=== PATIENT | male | born 1945 | race Caucasian/White ===

== ENCOUNTER 2016-04-16 10:12 | Inpatient (IN) | payer MEDICARE, BC ==
[2016-04-16] VITALS (9 sets, daily range): BP systolic 108–157; BP diastolic 76–96; PULSE 63–102; RESP 16–20; TEMP 98.1–99; O2SAT 93–98
[~2016-04-16] VITALS: Ht 149.9 cm; Wt 79.5 kg
[2016-04-16] MEDS ORDERED: WELC625T2 PO (10:39)
[2016-04-16] MEDS ORDERED: MELO7.5T4 PO (10:39)
[2016-04-16] MEDS ORDERED: ASPI1TAB69 PO (10:39)
[2016-04-16] MEDS ORDERED: NITR400A5 SL (10:39)
[2016-04-16] MEDS ORDERED: FEXO180T PO (10:39)
[2016-04-16] MEDS ORDERED: PANT40TA3 PO (10:39)
[2016-04-16] MEDS ORDERED: GABA300C5 PO ×2 (10:39)
[2016-04-16] MEDS ORDERED: LISI20TA3 PO (10:39)
[2016-04-16] MEDS ORDERED: SITA1TAB2 PO (10:39)
[2016-04-16] MEDS ORDERED: METO100T9 PO (10:39)
--- NOTE | 2016-04-16 10:39 | PD ---
HPI Chief Complaint: Abdominal Pain Time Seen by Provider: 10:17 Travel History International Travel<30 days: No Contact w/Intl Traveler<30days: No Traveled to known affect area: No History of Present Illness HPI This 70-year-old male with history of small bowel obstruction and ingrown hernia repair presents emergency Department with right upper quadrant abdominal pain fairly severe since last night. Patient states had movement yesterday which is fairly soft nonbloody and nonbilious. Patient thought he was constipated and took a stool softener. Patient got in the shower this morning and felt very weak like he was going to pass out, he was moved to the toilet by his who then stated he needed to go to the hospital be checked out and she called 911. Patient states abdominal pain is coming on but as long as he holds still and this does not hurt him. He does endorse some mild nausea without vomiting. States pain is cramping in nature. Denies any fever denies any vomiting denies any chest pain shortness of breath PFSH Past Medical History Arthritis: Yes (OSTEOARTHRITIS) Cardiovascular Problems: Yes High Cholesterol: Yes Coronary Artery Disease: Yes Diabetes: Yes (TYPE 2) Patient Takes Glucophage: No (JANUVIA) GERD: Yes Hypertension: Yes Reproductive: Yes (BPH) Immunizations Current: Yes Myocardial Infarction: Yes Past Surgical History Coronary Artery Bypass Graft: Yes Eye Surgery: Yes (CATARACTS REMOVED) Genitourinary Surgery: Yes (VASECTOMY) Joint Replacement: Yes (LEFT TOTAL HIP ) Oral Surgery: Yes (LARYNGEAL STRIPPING FO VOCAL CORDS) Other Surgery: Yes (LEFT INGUINAL HERNIA REPAIR, MELANOMA REMOVAL NECK) Social History Alcohol Use: Yes (OCC) Tobacco Use: No Substance Use: No Allergies-Medications (Allergen,Severity, Reaction): Coded Allergies: HMG-CoA Reductase Inhibitors (Verified Adverse Reaction, Intermediate, MUSCLE ACHES, 04/16/16) Reported Meds & Prescriptions Reported Meds & Active Scripts Active Reported Welchol (Colesevelam HCl) 625 Mg Tab 1,875 Mg PO BID Pantoprazole (Pantoprazole Sodium) 40 Mg Tab 40 Mg PO DAILY Nitroglycerin Lingual [place] (Nitroglycerin) 400 Mcg/Act [place] 1 [place] SL DIRECTED PRN ONE SPRAY NEEDED FOR CHEST PAIN, MAY REPEAT EVERY FIVE MINUTES FOR A TOTAL OF 3 DOSES OR CALL 911 IF NO RELIEF Metoprolol Succinate ER 24 HR (Metoprolol Succinate) 100 Mg Tab 100 Mg PO DAILY Meloxicam 7.5 Mg Tab 7.5 Mg PO BID Lisinopril-Hctz 20-25 Mg Tab 1 Tab PO DAILY Januvia (Sitagliptin Phosphate) 100 Mg Tab 100 Mg PO DAILY Gabapentin 300 Mg Cap 1,200 Mg PO HS Gabapentin 300 Mg Cap 300 Mg PO DAILY@0600 Fexofenadine (Fexofenadine HCl) 180 Mg Tab 180 Mg PO DAILY Aspirin 81 Mg Tabdr 81 Mg PO DAILY Review of Systems Except as stated in HPI: all other systems reviewed are Neg Physical Exam Narrative GENERAL: Well-developed well-nourished no apparent distress SKIN: Warm and dry. HEAD: Atraumatic. Normocephalic. EYES: Pupils equal and round. No scleral icterus. No injection or drainage. ENT: No nasal bleeding or discharge. Mucous membranes pink and moist. NECK: Trachea midline. No JVD. CARDIOVASCULAR: Regular rate and rhythm. No murmur appreciated. RESPIRATORY: No accessory muscle use. Clear to auscultation. Breath sounds equal bilaterally. GASTROINTESTINAL: Abdomen soft, minimally tender in the right upper quadrant, Tomas sign negative., nondistended. Hepatic and splenic margins not palpable. No percussive tenderness no rebound tenderness. MUSCULOSKELETAL: No obvious deformities. No clubbing. No cyanosis. No edema. NEUROLOGICAL: Awake and alert. No obvious cranial nerve deficits. Motor grossly within normal limits. Normal speech. PSYCHIATRIC: Appropriate mood and affect; insight and judgment normal. Data Data Last Documented VS Vital Signs Date Time Temp Pulse Resp B/P Pulse Ox O2 Delivery O2 Flow Rate FiO2 04/16/16 12:51 69 16 122/77 96 Room Air 04/16/16 10:17 98.1 Orders Complete Blood Count With Diff (04/16/16 10:35) Comprehensive Metabolic Panel (04/16/16 10:35) Lipase (04/16/16 10:35) Lactic Acid (04/16/16 10:35) Prothrombin Time / Inr (Pt) (04/16/16 10:35) Act Partial Throm Time (Ptt) (04/16/16 10:35) Urinalysis - C+S If Indicated (04/16/16 10:35) Ct Abd/Pel W Iv Contrast(Rout) (04/16/16 10:35) Iv Access Insert/Monitor (04/16/16 10:35) Ecg Monitoring (04/16/16 10:35) Oximetry (04/16/16 10:35) Sodium Chloride 0.9% Flush (Ns Flush) (04/16/16 10:45) Electrocardiogram (04/16/16 10:35) Troponin I (04/16/16 10:35) Iohexol 350 Inj (Omnipaque 350 Inj) (04/16/16 12:09) Insert Ng Tube (04/16/16 13:00) Consult General Surgery (04/16/16 ) Blood Culture (04/16/16 13:11) Ampicillin-Sulbactam Inj (Unasyn Inj) (04/16/16 13:30) Ondansetron Inj (Zofran Inj) (04/16/16 13:30) (Hub Use Only)Inp Phy Cons/Ref (04/16/16 ) Admit Order (Ed Use Only) (04/16/16 ) Labs Laboratory Tests Test 04/16/16 04/16/16 04/16/16 10:50 11:30 12:14 White Blood Count 12.5 TH/MM3 Red Blood Count 5.46 MIL/MM3 Hemoglobin 15.6 GM/DL Hematocrit 48.6 % Mean Corpuscular Volume 89.0 FL Mean Corpuscular Hemoglobin 28.6 PG Mean Corpuscular Hemoglobin 32.2 % Concent Red Cell Distribution Width 13.4 % Platelet Count 299 TH/MM3 Mean Platelet Volume 8.5 FL Neutrophils (%) (Auto) 75.0 % Lymphocytes (%) (Auto) 16.9 % Monocytes (%) (Auto) 3.7 % Eosinophils (%) (Auto) 0.9 % Basophils (%) (Auto) 3.5 % Neutrophils # (Auto) 9.4 TH/MM3 Lymphocytes # (Auto) 2.1 TH/MM3 Monocytes # (Auto) 0.5 TH/MM3 Eosinophils # (Auto) 0.1 TH/MM3 Basophils # (Auto) 0.4 TH/MM3 CBC Comment DIFF FINAL Differential Comment Prothrombin Time 10.8 SEC Prothromb Time International 1.0 RATIO Ratio Activated Partial 25.0 SEC Thromboplast Time Sodium Level 137 MEQ/L Potassium Level 4.2 MEQ/L Chloride Level 101 MEQ/L Carbon Dioxide Level 28.7 MEQ/L Anion Gap 7 MEQ/L Blood Urea Nitrogen 20 MG/DL Creatinine 1.20 MG/DL Estimat Glomerular Filtration 60 ML/MIN Rate Random Glucose 142 MG/DL Calcium Level 8.7 MG/DL Total Bilirubin 0.9 MG/DL Aspartate Amino Transf 23 U/L (AST/SGOT) Alanine Aminotransferase 31 U/L (ALT/SGPT) Alkaline Phosphatase 87 U/L Troponin I LESS THAN 0.02 NG/ML Total Protein 7.0 GM/DL Albumin 3.5 GM/DL Lipase 112 U/L Lactic Acid Level 2.0 mmol/L Urine Collection Type CLEAN CATCH Urine Color YELLOW Urine Turbidity CLEAR Urine pH 5.5 Urine Specific [place] 1.032 Urine Protein NEG mg/dL Urine Glucose (UA) NEG mg/dL Urine Ketones NEG mg/dL Urine Occult Blood NEG Urine Nitrite NEG Urine Bilirubin NEG Urine Leukocyte Esterase NEG Urine RBC 0-3 /hpf Urine Squamous Epithelial 0-5 /hpf Cells Microscopic Urinalysis Comment CULT NOT INDICATED Urine Collection Time 12:14 [facility] Medical Decision Making Medical Screen Exam Complete: Yes Emergency Medical Condition: Yes Interpretation(s) EKG shows sinus first degree heart block with a left axis deviation, right bundle dillon block with left anterior fascicular block. No concerning ST T changes. Differential Diagnosis SBO, abdominal pain, gastritis, gastritis, pancreatitis. Narrative Course Patient roomed emergency department, abdomen is benign. CT examination shows Last 24 hours Impressions Abdomen/Pelvis CT 04/16/16 1035 Signed Impressions: Service Date/Time: Saturday, April 16, 2016 11:51 - CONCLUSION: 1. Long segment high-grade inflammatory changes with wall thickening and luminal narrowing of small bowel in the right lower quadrant, involves the mid and distal ileum but spares the terminal ileum. There is associated small bowel obstruction. The inflammatory changes are nonspecific. Second peak Crohn's disease would be in the differential. 2. Trace ascites, presumably related to the small bowel obstruction. I don't see free air. Also no evidence of abscess. 3. Sigmoid colon diverticulosis without diverticulitis. 4. Mild fatty infiltration of the liver. Alber Ballard MD Given the level of information the patient was started on Unasyn. Patient was discussed with Dr. Carson John of Gen. surgery who recommends with multiple comorbidities admission to medicine and he will see in consultation. Discussed with Dr. Brooks who will admit. Patient has had NG placement confirmed with x-ray. Diagnosis Primary Impression: SBO (small bowel obstruction) Admitting Information Admitting Physician Requests: Admit Condition: Stable Lev Marie MD Apr 16, 2016 10:39
[2016-04-16] MEDS ORDERED: SODIUM CHLORIDE 0.9% FLUSH 5 ML FLUSH IVF PRN (10:45)
[2016-04-16 11:07] LABS: AUTOMATED NEUTROPHIL # 9.4 TH/MM3 (1.8-7.7); BASOPHIL # 0.4 TH/MM3 (0-0.2); BASOPHIL % 3.5 % (0.0-2.0); EOSINOPHIL # 0.1 TH/MM3 (0-0.4); EOSINOPHIL % 0.9 % (0.0-4.0); HEMATOCRIT 48.6 % (39.0-51.0); LYMPH % 16.9 % (9.0-44.0); LYMPHOCYTE # 2.1 TH/MM3 (1.0-4.8); MEAN CORPUSCULAR HEMOGLOBIN 28.6 PG (27.0-34.0); MEAN CORPUSCULAR HGB CONC 32.2 % (32.0-36.0); MONO % 3.7 % (0.0-8.0); PLATELET COUNT 299 TH/MM3 (150-450); RED BLOOD COUNT 5.46 MIL/MM3 (4.50-5.90); RED CELL DISTRIBUTION WIDTH 13.4 % (11.6-17.2); WHITE BLOOD COUNT 12.5 TH/MM3 (4.0-11.0)
[2016-04-16 11:15] LABS: CHLORIDE 101 MEQ/L (98-107); POTASSIUM 4.2 MEQ/L (3.5-5.1); SODIUM (NA) 137 MEQ/L (136-145)
[2016-04-16 11:19] LABS: ANION GAP 7 MEQ/L (5-15); BICARBONATE 28.7 MEQ/L (21.0-32.0); BLOOD UREA NITROGEN 20 MG/DL (7-18); PROTHROMBIN TIME - PATIENT 10.8 SEC (9.8-11.6)
[2016-04-16 11:22] LABS: ALT (GPT) 31 U/L (12-78); AST (GOT) 23 U/L (15-37); GLOMERULAR FILTRATION RATE 60 ML/MIN (>89)
[2016-04-16 11:24] LABS: TOTAL BILIRUBIN ADULT 0.9 MG/DL (0.2-1.0)
[2016-04-16 11:25] LABS: ALKALINE PHOSPHATASE 87 U/L (45-117)
[2016-04-16 11:30] LABS: HEMO FLAGS DIFF FINAL
[2016-04-16] MEDS ORDERED: IOHEXOL 350 MG/ML 10 ML VIAL (for RAD DIAG) IV ONE (12:09)
[2016-04-16 12:35] LABS: BLOOD, URINE NEG (NEG); GLUCOSE,URINE NEG (NEG); KETONE, URINE NEG (NEG); NITRITE,URINE NEG (NEG); PH, URINE 5.5 (5.0-8.5)
[2016-04-16 12:36] LABS: COMMENT (UR) CULT NOT INDICATED; CULTURE IF INDICATED CULT NOT INDICATED; RBC, URINE 0-3 /hpf (0-3); SQUAMOUS EPITHELIAL CELL URINE 0-5 /hpf (0-5)
[2016-04-16 12:47] LABS: URINE COLOR YELLOW (YELLW/STRAW)
[2016-04-16 12:48] LABS: METHOD OF COLLECTION CLEAN CATCH
--- NOTE | 2016-04-16 12:54 | RADHPO ---
EXAM DATE/TIME: 04/16/2016 11:51 [facility] COMPARISON: No previous studies available for comparison. INDICATIONS : Right lower quadrant pain since last night. IV CONTRAST: 75 cc Omnipaque 350 (iohexol) IV ORAL CONTRAST: No oral contrast ingested. RADIATION DOSE: 15.89 CTDIvol (mGy) MEDICAL HISTORY : Cardiovascular disease. Hypertension. Gastroesophageal reflux disease.Diabetes. SURGICAL HISTORY : CABG ENCOUNTER: Initial ACUITY: 2 days PAIN SCALE: 2/10 LOCATION: Right lower quadrant TECHNIQUE: Volumetric scanning of the abdomen and pelvis was performed. Using automated exposure control and ad justment of the mA and/or kV according to patient size, radiation dose was kept as low as reasonably achievable to obtain optimal diagnostic quality images. FINDINGS: Long segment small bowel wall thickening with luminal narrowing seen in the right lower quadrant, in the expected region of the mid and distal ileum. The terminal ileum appears relatively spared. Upstre am of the affected small bowel are distended and fluid and air-filled loops compatible with obstructi on. I don't see a mass lesion. The appendix is well-visualized, normal. Patient has mild left-sided colon diverticulosis without div erticulitis. The colon is otherwise within normal limits. Liver is mildly fatty infiltrated. Patient has a 9 mm stone in an otherwise normal-appearing gallblad alvaro. No ductal stone or ductal dilatation. Spleen, pancreas, adrenal glands and kidneys are all within normal limits. Small ascites noted. Nothing organized or drainable. Visualized lung bases are clear. No acute abnormality seen of the visualized osseous structures. Ther e is mild scoliosis and considerable degenerative changes of the thoracolumbar spine. The patient has had left hip arthroplasty. CONCLUSION: 1. Long segment high-grade inflammatory changes with wall thickening and luminal narrowing of small b owel in the right lower quadrant, involves the mid and distal ileum but spares the terminal ileum. Th ere is associated small bowel obstruction. The inflammatory changes are nonspecific. Second peak Croh n's disease would be in the differential. 2. Trace ascites, presumably related to the small bowel obstruction. I don't see free air. Also no ev idence of abscess. 3. Sigmoid colon diverticulosis without diverticulitis. 4. Mild fatty infiltration of the liver. Alber Ballard MD on April 16, 2016 at 12:48 Board Certified Radiologist. This report was verified electronically.
[2016-04-16] MEDS ORDERED: ONDANSETRON HCL 4 MG/2 ML VIAL IV PUSH ONE (13:30)
[2016-04-16] MEDS ORDERED: AMPICILLIN-SULBACTAM INJ 3 GM in SODIUM CHLORIDE 0.9% INJ 100 ML IV ONE (13:30)
[2016-04-16] MEDS ORDERED: D5-1/2 NS + KCL 20 MEQ INJ 1,000 ML IV SCH (13:55)
[2016-04-16] MEDS ORDERED: NALOXONE HCL 0.4 MG/ML AMP IV PRN (14:00)
[2016-04-16] MEDS ORDERED: SODIUM CHLORIDE 0.9% FLUSH 5 ML FLUSH FLUSH PRN (14:00)
[2016-04-16] MEDS ORDERED: MORPHINE SULFATE 4 MG/ML INJ IV PRN (14:15)
--- NOTE | 2016-04-16 14:43 | RADHPO ---
EXAM DATE/TIME: 04/16/2016 14:09 [facility] COMPARISON: No previous studies available for comparison. INDICATIONS : Confirm NG tube placement. MEDICAL HISTORY : Cardiovascular disease. Hypertension. Gastroesophageal reflux disease.Diabetes. SURGICAL HISTORY : CABG. ENCOUNTER: Subsequent ACUITY: 1 day PAIN SCORE: 0/10 LOCATION: Abdomen. FINDINGS: NG tube passes below the diaphragm and is coiled in the upper stomach. About 15 cm of the tube is wit hin the stomach. Nonobstructive bowel gas pattern. CONCLUSION: NG tube tip in the stomach. Alber Ballard MD on April 16, 2016 at 14:40 Board Certified Radiologist. This report was verified electronically.
[2016-04-16] MEDS: INSULIN ASPART SUPPLEMENTAL SCALE SQ SCH ×2 (16:00→21:00)
[2016-04-16] MEDS ORDERED: GLUCAGON 1 MG/ML VIAL OTHER PRN (16:00)
[2016-04-16] MEDS ORDERED: DEXTROSE 50% IN WATER 50 ML VIAL(D50) IV PUSH PRN (16:00)
--- NOTE | 2016-04-16 16:05 | HHI.HP ---
[facility] Service [facility] Primary Care Physician Non-Staff Admission Diagnosis SBO Diagnoses: Travel History International Travel<30 Days: No Contact w/Intl Traveler <30 Da: No Traveled to Known Affected Are: No History of Present Illness This is a very pleasant 70-year-old male who is from [place] and here vacationing with his and who has a past medical history of left inguinal hernia repair in November 2015 and previous history of small bowel obstruction approximately 15 years ago who presented to the ER today complaining of severe right sided abdominal pain that began yesterday evening. The pain was waxing and waning, no apparent provocative or alleviated factors. He thought he might be constipated and took a stool softener. He did have one soft bowel movement yesterday without any blood in it. He had nausea but no vomiting. This morning he still is having the pain so he was urged to come to the ER by his . While in the shower he felt dizzy and lightheaded and had a near-syncopal event according to his . E CONSUELO was called. In the emergency department abdominal CT scan showed a small bowel obstruction with a long segment of high-grade inflammatory changes involving the mid and distal ileum. The patient gets regular colonoscopies every 3 years from history of polyps and has never been told that he has history of Crohn's. He does have a history of diverticulitis and was hospitalized once for this for several days. Patient denies fever or chills. No history of rectal bleeding. Review of Systems Except as stated in HPI: all other systems reviewed are Neg Past Family Social History Past Medical History Type 2 diabetes History of [place], does not have any coronary artery stents Diverticulitis BPH GERD Colon polyps Small Bowel obstruction 15 years ago Hypertension Hyperlipidemia Past Surgical History Excision of melanoma from neck in 1971 Carpal tunnel release Left hip arthroplasty Vasectomy Cataracts Left inguinal hernia repair November 2015 Reported Medications Last Impressions Abdomen/Pelvis CT 04/16/16 1035 Signed Impressions: Service Date/Time: Saturday, April 16, 2016 11:51 - CONCLUSION: 1. Long segment high-grade inflammatory changes with wall thickening and luminal narrowing of small bowel in the right lower quadrant, involves the mid and distal ileum but spares the terminal ileum. There is associated small bowel obstruction. The inflammatory changes are nonspecific. Second peak Crohn's disease would be in the differential. 2. Trace ascites, presumably related to the small bowel obstruction. I don't see free air. Also no evidence of abscess. 3. Sigmoid colon diverticulosis without diverticulitis. 4. Mild fatty infiltration of the liver. Alber Ballard MD Abdomen X-Ray 04/16/16 0000 Signed Impressions: Service Date/Time: Saturday, April 16, 2016 14:09 - CONCLUSION: NG tube tip in the stomach. Alber Ballard MD Allergies: Coded Allergies: HMG-CoA Reductase Inhibitors (Verified Adverse Reaction, Intermediate, MUSCLE ACHES, 04/16/16) Family History Negative for Crohn's disease or inflammatory bowel disorder Social History Drinks rarely. No history of tobacco or drug use. He is . He lives in [place] with his . Physical Exam Vital Signs Vital Signs Date Time Temp Pulse Resp B/P Pulse Ox O2 Delivery O2 Flow Rate FiO2 04/16/16 15:30 98.8 70 18 119/79 97 04/16/16 14:51 78 16 108/76 96 Room Air 04/16/16 13:51 74 16 119/77 96 Room Air 04/16/16 12:51 69 16 122/77 96 Room Air 04/16/16 12:20 63 16 157/87 98 Room Air 04/16/16 11:11 67 16 134/79 97 Room Air 04/16/16 10:30 16 97 Room Air 04/16/16 10:17 98.1 63 16 143/80 97 Physical Exam GENERAL: Well-nourished, well-developed very pleasant male patient. SKIN: Warm and dry. HEAD: Normocephalic. EYES: No scleral icterus. No injection or drainage. NECK: Supple, trachea midline. No JVD or lymphadenopathy. CARDIOVASCULAR: Regular rate and rhythm without murmurs, gallops, or rubs. RESPIRATORY: Breath sounds equal bilaterally. No accessory muscle use. GASTROINTESTINAL: Bowel sounds absent. Abdomen distended but soft. Tender to palpation. Umbilical area without guarding. EXTREMITIES: No cyanosis, or edema. NEUROLOGICAL: Awake, alert, and oriented x 3. Non-focal. Laboratory Laboratory Tests Test 3/8/17 3/8/17 3/8/17 10:50 11:30 12:14 White Blood Count 12.5 Red Blood Count 5.46 Hemoglobin 15.6 Hematocrit 48.6 Mean Corpuscular Volume 89.0 Mean Corpuscular Hemoglobin 28.6 Mean Corpuscular Hemoglobin 32.2 Concent Red Cell Distribution Width 13.4 Platelet Count 299 Mean Platelet Volume 8.5 Neutrophils (%) (Auto) 75.0 Lymphocytes (%) (Auto) 16.9 Monocytes (%) (Auto) 3.7 Eosinophils (%) (Auto) 0.9 Basophils (%) (Auto) 3.5 Neutrophils # (Auto) 9.4 Lymphocytes # (Auto) 2.1 Monocytes # (Auto) 0.5 Eosinophils # (Auto) 0.1 Basophils # (Auto) 0.4 CBC Comment DIFF FINAL Differential Comment Prothrombin Time 10.8 Prothromb Time International 1.0 Ratio Activated Partial 25.0 Thromboplast Time Sodium Level 137 Potassium Level 4.2 Chloride Level 101 Carbon Dioxide Level 28.7 Anion Gap 7 Blood Urea Nitrogen 20 Creatinine 1.20 Estimat Glomerular Filtration 60 Rate Random Glucose 142 Calcium Level 8.7 Total Bilirubin 0.9 Aspartate Amino Transf 23 (AST/SGOT) Alanine Aminotransferase 31 (ALT/SGPT) Alkaline Phosphatase 87 Troponin I LESS THAN 0.02 Total Protein 7.0 Albumin 3.5 Lipase 112 Lactic Acid Level 2.0 Urine Collection Type CLEAN CATCH Urine Color YELLOW Urine Turbidity CLEAR Urine pH 5.5 Urine Specific [place] 1.032 Urine Protein NEG Urine Glucose (UA) NEG Urine Ketones NEG Urine Occult Blood NEG Urine Nitrite NEG Urine Bilirubin NEG Urine Leukocyte Esterase NEG Urine RBC 0-3 Urine Squamous Epithelial 0-5 Cells Microscopic Urinalysis Comment CULT NOT INDICATED Urine Collection Time 12:14 Date/Time Procedure Status Source Growth 04/16/16 13:30 Aerobic Blood Culture Received Blood Peripheral Pending 04/16/16 13:30 Anaerobic Blood Culture Received Blood Peripheral Pending Result Diagram: 04/16/16 1050 04/16/16 1050 Assessment and Plan Problem List: (1) SBO (small bowel obstruction) ICD Code: K56.69 Status: Acute (2) CAD (coronary artery disease) ICD Code: I25.10 Status: Acute (3) Ileitis ICD Code: K52.9 Status: Acute (4) HTN (hypertension) ICD Code: I10 Status: Acute (5) Type 2 diabetes mellitus ICD Code: E11.9 Status: Acute Assessment and Plan -Small bowel obstruction due to inflammatory changes in the ileum. Previous history of small bowel obstruction and intra-abdominal surgery. Discussed with general surgery/Dr. John. Attempt conservative management with NG tube to suction. I will treat with Cipro and Flagyl IV as well as Solu-Medrol. Consult GI for opinion on the ileum inflammation. IV fluids, pain medicine and antinausea medicine as needed. -Type 2 diabetes -hold Januvia until taking by mouth. Sliding scale insulin with Accu-Cheks. -History of [place], does not have any coronary artery stents -hold aspirin as he is nothing by mouth. -Hypertensionhydralazine IV when necessary. -GERD - Protonix IV. -BPH - voiding well. -DVT prophylaxis with SCDs. Mary Lou Brooks MD Apr 16, 2016 16:05
[2016-04-16] MEDS: LACTATED RINGER'S 1000 ML INJ 1,000 ML IV SCH (16:26)
[2016-04-16] MEDS: methylPREDNISolone SOD SUCC 40 MG/1 ML VIAL IV PUSH SCH ×2 (16:58→23:59)
[2016-04-16] MEDS: PANTOPRAZOLE SODIUM 40 MG VIAL IV PUSH SCH (16:59)
[2016-04-16] MEDS: metroNIDAZOLE 500 MG INJ 100 ML IV SCH ×2 (16:59→23:59)
[2016-04-16] MEDS: METOCLOPRAMIDE HCL 10 MG/2 ML VIAL IV PUSH PRN (17:09)
[2016-04-16] MEDS: CIPROFLOXACIN 200 MG PREMIX 100 ML IV SCH (18:00)
[2016-04-16] MEDS ORDERED: ONDANSETRON HCL 4 MG/2 ML VIAL IVP PRN (20:00)
--- NOTE | 2016-04-16 20:19 | MB ---
cc: LINDA STAPLETON MD DATE OF CONSULTATION 04/16/2016 REASON FOR CONSULTATION Small-bowel obstruction. HISTORY OF PRESENT ILLNESS The patient is a 70-year-old male visiting from [place]. He presents with nausea, vomiting, abdominal pain since yesterday. The patient states last night after dinner increased abdominal pain, distension and some vomiting. He states the pain is a 7/10, it is diffuse, achy. Associated with nausea, better with lying still, worse with movement. He states is also somewhat intermittent. He does have a history of left inguinal hernia repair November 2015 and a previous history of bowel obstruction greater than 10 years ago. The hernia repair was done robotically / laparoscopically. The patient has had no problems since. His previous bowel obstruction resolved with " Reglan and medication" per . The patient was evaluated emergency department with CT scan and findings of small bowel obstruction and possible ileitis. Therefore a surgical consultation for further evaluation. On my exam the patient is resting comfortably. He does have an NG tube in place. He states his abdomen is improved slightly, still has some distension and mild abdominal pain. He has had workup with colonoscopies, evaluation for history of polyps. He has no family history of irritable bowel disease or personal history of irritable bowel disease. He does have history of hospitalization for diverticulitis in the past. Years ago this was treated medically. The patient's last bowel movement was yesterday. He is not passing gas. He denies any bleeding. PAST MEDICAL HISTORY 1. Diabetes type 2. 2. History of myocardial infarction. 3. Diverticulitis. 4. Benign prostatic hypertrophy. 5. Reflux. 6. Colon polyps. 7. Small-bowel obstruction. 8. Hypertension. 9. Hyperlipidemia. PAST SURGICAL HISTORY 1. Excision of neck melanoma. 2. Carpal tunnel. 3. Left hip replacement. 4. cataracts. 5. Left inguinal hernia repair 2015. MEDICATIONS See EMR. ALLERGIES HMG-CoA reductase inhibitors. FAMILY HISTORY Denies diabetes, irritable bowel disease or hypertension. SOCIAL HISTORY Occasional Ethyl alcohol. Denies smoking or IVDA. REVIEW OF SYSTEMS GENERAL: The patient denies fevers or chills. HEENT: Denies eye pain, ear pain. NECK: Denies pain or swelling. CARDIOVASCULAR: Denies palpitations. Does have a history of myocardial infarction. RESPIRATORY: Denies cough or wheeze. GASTROINTESTINAL: Complains of nausea, vomiting, abdominal pain. EXTREMITIES: Denies edema or swelling. NEUROLOGICAL: Denies numbness or tingling. GENITOURINARY: Denies dysuria, hematuria. ENDOCRINE: Denies polyuria, polydipsia. PHYSICAL EXAMINATION GENERAL: The patient in no acute distress. VITAL SIGNS: Temperature 98.8, pulse 70, respirations 18, blood pressure 119/79, pulse ox 97%. HEENT: PERRLA, EOMI. Pupils equal, reactive. NECK: Supple. Trachea midline. LUNGS: Bilateral expansion. Clear to auscultation. HEART: S1-S2 regular rhythm. ABDOMEN: Soft, distended. Mild tenderness to palpation. No rebound or guarding. Well-healed surgical scars. EXTREMITIES: No edema, well-perfused. NEUROLOGICAL: GCS of 15. Alert and oriented times three. No numbness. GENITOURINARY: Within normal limits. SKIN: No obvious masses or lesions. LABORATORY AND DIAGNOSTIC DATA WBC 12.5, hemoglobin 15.6, hematocrit 48.6, platelets 299. Sodium 137, potassium 4.2, chloride 101, CO2 28.7, BUN 20, creatinine 1.2, platelets 142. RADIOLOGY Reviewed CT scan of the abdomen and pelvis by myself showing inflammatory, thickened small bowel in the right lower quadrant, distal ileum. Small bowel obstruction concerning for inflammatory bowel disease. No significant diverticulitis. ASSESSMENT The patient is a 70-year-old male with small-bowel obstruction. PLAN A full clinical, radiologic, laboratory workup. The patient with the above-named issue including a small bowel obstruction. At this point the patient does have significant bowel obstruction. We will attempt nonoperative medical treatment at this time with an NG tube, bowel rest, IV fluids, correct any electrolytes and pain control. If the patient does not improve in a few days we will consider upper GI for small bowel follow-through for further evaluation, possible operative intervention if continued no improvement. This was discussed with the patient in detail, he agrees and understands. Further to be administered by medical team and optimized from a medical standpoint. MD LORRAINE Almonte/RAFAEL /6:56 PM /8:03 PM PETE
[2016-04-16] MEDS: SODIUM CHLORIDE 0.9% FLUSH 5 ML FLUSH FLUSH SCH (21:00)
[2016-04-17] VITALS: BP 140/95; PULSE 105; RESP 20; TEMP 96.6; O2SAT 95
[2016-04-17] MEDS: LACTATED RINGER'S 1000 ML INJ 1,000 ML IV SCH ×3 (03:23→20:19)
[2016-04-17 04:00] VITALS: BP 134/94; PULSE 98; RESP 20; TEMP 97.9; O2SAT 94
[2016-04-17] MEDS: methylPREDNISolone SOD SUCC 40 MG/1 ML VIAL IV PUSH SCH ×4 (05:51→23:45)
[2016-04-17] MEDS: CIPROFLOXACIN 200 MG PREMIX 100 ML IV SCH ×2 (05:53→17:27)
[2016-04-17] MEDS: INSULIN ASPART SUPPLEMENTAL SCALE SQ SCH ×4 (05:58→20:18)
--- NOTE | 2016-04-17 07:33 | HHI.PR ---
Subjective Subjective Notes Resting in bed Reports he feels less bloated today at bedside Objective Vitals/I&O Vital Signs Date Time Temp Pulse Resp B/P Pulse Ox O2 Delivery O2 Flow Rate FiO2 04/17/16 04:00 97.9 98 20 134/94 94 04/16/16 14:51 Room Air Labs Laboratory Tests Test 04/16/16 04/16/16 04/16/16 10:50 11:30 12:14 White Blood Count 12.5 Red Blood Count 5.46 Hemoglobin 15.6 Hematocrit 48.6 Mean Corpuscular Volume 89.0 Mean Corpuscular Hemoglobin 28.6 Mean Corpuscular Hemoglobin 32.2 Concent Red Cell Distribution Width 13.4 Platelet Count 299 Mean Platelet Volume 8.5 Neutrophils (%) (Auto) 75.0 Lymphocytes (%) (Auto) 16.9 Monocytes (%) (Auto) 3.7 Eosinophils (%) (Auto) 0.9 Basophils (%) (Auto) 3.5 Neutrophils # (Auto) 9.4 Lymphocytes # (Auto) 2.1 Monocytes # (Auto) 0.5 Eosinophils # (Auto) 0.1 Basophils # (Auto) 0.4 CBC Comment DIFF FINAL Differential Comment Prothrombin Time 10.8 Prothromb Time International 1.0 Ratio Activated Partial 25.0 Thromboplast Time Sodium Level 137 Potassium Level 4.2 Chloride Level 101 Carbon Dioxide Level 28.7 Anion Gap 7 Blood Urea Nitrogen 20 Creatinine 1.20 Estimat Glomerular Filtration 60 Rate Random Glucose 142 Calcium Level 8.7 Total Bilirubin 0.9 Aspartate Amino Transf 23 (AST/SGOT) Alanine Aminotransferase 31 (ALT/SGPT) Alkaline Phosphatase 87 Troponin I LESS THAN 0.02 Total Protein 7.0 Albumin 3.5 Lipase 112 Lactic Acid Level 2.0 Urine Collection Type CLEAN CATCH Urine Color YELLOW Urine Turbidity CLEAR Urine pH 5.5 Urine Specific [place] 1.032 Urine Protein NEG Urine Glucose (UA) NEG Urine Ketones NEG Urine Occult Blood NEG Urine Nitrite NEG Urine Bilirubin NEG Urine Leukocyte Esterase NEG Urine RBC 0-3 Urine Squamous Epithelial 0-5 Cells Microscopic Urinalysis Comment CULT NOT INDICATED Urine Collection Time 12:14 Date/Time Procedure Status Source Growth 04/16/16 13:30 Aerobic Blood Culture Received Blood Peripheral Pending 04/16/16 13:30 Anaerobic Blood Culture Received Blood Peripheral Pending Cardiovascular: Regular Lungs: Clear Abdomen: Other (non tender; distended ) Extremities: No edema Narrative Exam NGT in place A/P Assessment and Plan 70 year old male with SBO -Okay to clamp NGT to walk today -NPO until bowel function returns -KUB today to see if contrast moving to colon -Continue IVF Attending Statement patient seen at bedside feels better sbo, clamp ng axr Attestation The exam, history, and the medical decision-making described in the above note were completed with the assistance of the mid-level provider. I reviewed and agree with the findings presented. I attest that I had a [id number] encounter with the patient on the same day, and personally performed and documented my assessment and findings in the medical record. Maribell Heaton Apr 17, 2016 07:33 Carson John MD Apr 26, 2016 21:01
[2016-04-17 08:00] VITALS: BP 135/89; PULSE 105; RESP 20; TEMP 97.9; O2SAT 95
[2016-04-17] MEDS: metroNIDAZOLE 500 MG INJ 100 ML IV SCH ×3 (08:37→23:45)
[2016-04-17] MEDS: SODIUM CHLORIDE 0.9% FLUSH 5 ML FLUSH FLUSH SCH ×2 (08:37→20:18)
--- NOTE | 2016-04-17 09:40 | RADHPO ---
EXAM DATE/TIME: 04/17/2016 08:23 [facility] COMPARISON: CT ABDOMEN & PELVIS W CONTRAST, April 16, 2016, 11:51. INDICATIONS : Abdominal discomfort, evaluate small bowel obstruction MEDICAL HISTORY : Hypertension. Gastroesophageal reflux disease. Diabetes mellitus type II. SURGICAL HISTORY : CABG. ENCOUNTER: Subsequent ACUITY: 2 days PAIN SCORE: 0/10 LOCATION: Bilateral abdomen FINDINGS: Is abnormal dilatation of multiple small bowel loops to about 3.9 cm. Findings characteristic of at l east a partial small bowel obstruction. NG coiled in stomach. No free air. Previous left hip replacem ent. CONCLUSION: 1. Abnormal small bowel dilatation characteristic of at least a partial small bowel obstruction. No f ree air. Jaciel Burnett MD on April 17, 2016 at 9:33 Board Certified Radiologist. This report was verified electronically.
[2016-04-17 12:00] VITALS: BP 155/85; PULSE 89; RESP 20; TEMP 98.6; O2SAT 97
--- NOTE | 2016-04-17 12:34 | HHI.PR ---
Subjective Remarks The patient had 600 mL out from the NG tube as of 7 AM this morning and has had another 200 out throughout the day. He denies any nausea or vomiting. He is not complaining of significant abdominal pain. No passing of gas. He has ambulated this morning throughout the [place]. KUB shows persistent obstructive pattern I reviewed the images. Objective Vitals Vital Signs Date Time Temp Pulse Resp B/P Pulse Ox O2 Delivery O2 Flow Rate FiO2 04/17/16 08:00 97.9 105 20 135/89 95 04/17/16 04:00 97.9 98 20 134/94 94 04/17/16 00:00 96.6 105 20 140/95 95 04/16/16 20:00 99.0 102 20 138/96 93 04/16/16 17:38 18 04/16/16 15:30 98.8 70 18 119/79 97 04/16/16 14:51 78 16 108/76 96 Room Air 04/16/16 13:51 74 16 119/77 96 Room Air 04/16/16 12:51 69 16 122/77 96 Room Air I/O 04/16/16 04/16/16 04/16/16 04/17/16 04/17/16 04/17/16 07:00 15:00 23:00 07:00 15:00 23:00 Intake Total 100 ml 600 ml 60 ml Output Total 180 ml 800 ml 200 ml Balance -80 ml -200 ml -140 ml Intake Oral 0 ml 60 ml IV Total 100 ml 600 ml Output Urine Total 180 ml 400 ml Gastric Drainage Total 400 ml 200 ml # Voids 1 3 3 # Bowel Movements 0 0 Result Diagram: 04/16/16 1050 04/17/16 1030 Objective Remarks GENERAL: Well-nourished, well-developed very pleasant male patient. SKIN: Warm and dry. HEAD: Normocephalic. EYES: No scleral icterus. No injection or drainage. NECK: Supple, trachea midline. No JVD or lymphadenopathy. CARDIOVASCULAR: Regular rate and rhythm without murmurs, gallops, or rubs. RESPIRATORY: Breath sounds equal bilaterally. No accessory muscle use. GASTROINTESTINAL: Bowel sounds are absent. Abdomen distended but soft. Nontender throughout. EXTREMITIES: No cyanosis, or edema. NEUROLOGICAL: Awake, alert, and oriented x 3. Non-focal. A/P Problem List: (1) SBO (small bowel obstruction) ICD Code: K56.69 Status: Acute (2) CAD (coronary artery disease) ICD Code: I25.10 Status: Chronic (3) Ileitis ICD Code: K52.9 Status: Acute (4) HTN (hypertension) ICD Code: I10 Status: Chronic (5) Type 2 diabetes mellitus ICD Code: E11.9 Status: Chronic (6) LYNSEY (acute kidney injury) ICD Code: N17.9 Status: Acute Assessment and Plan -Small bowel obstruction due to inflammatory changes in the ileum. Previous history of small bowel obstruction and intra-abdominal surgery. Discussed with general surgery/Dr. John. Attempt conservative management with NG tube to suction. I will treat with Cipro and Flagyl IV as well as Solu-Medrol. Consult GI for opinion on the ileum inflammation. KUB this morning shows persistent obstructive pattern, I reviewed the images. Continue NG tube. Continue IV fluids, pain medicine and antinausea medicine as needed. -Mild acute kidney injury. I will increase his IV fluid rate to 125 mL per hour. Repeat BMP in the morning. -Type 2 diabetes -hold Januvia until taking by mouth. Sliding scale insulin with Accu-Cheks. -History of ND, does not have any coronary artery stents -hold aspirin as he is nothing by mouth. -Hypertensionhydralazine IV when necessary. -GERD - Protonix IV. -BPH - voiding well. -DVT prophylaxis with SCDs. Mary Lou Brooks MD Apr 17, 2016 12:34
--- NOTE | 2016-04-17 13:57 | EKG ---
Date Performed: 04/16/2016 Time Performed: 10:39:12 PTAGE: 70 years EKG: Normal Sinus rhythm Left axis deviation Left anterior fascicular block Right bundle branch block Abnormal ECG NO PREVIOUS TRACING DOCTOR: Magan Jones Interpretating Date/Time 04/17/2016 13:56:08
[2016-04-17 16:00] VITALS: BP 161/88; PULSE 96; RESP 18; TEMP 98.9; O2SAT 94
[2016-04-17] MEDS: PANTOPRAZOLE SODIUM 40 MG VIAL IV PUSH SCH (17:27)
[2016-04-17 20:00] VITALS: BP 162/104; PULSE 96; RESP 18; TEMP 98.5; O2SAT 94
[2016-04-17] MEDS: hydrALAZINE HCL 20 MG/ML VIAL IV PUSH PRN (20:19)
[2016-04-18] VITALS: BP 155/98; PULSE 99; RESP 18; TEMP 98.7; O2SAT 95
[2016-04-18] MEDS: LACTATED RINGER'S 1000 ML INJ 1,000 ML IV SCH ×3 (06:23→23:32)
[2016-04-18] MEDS: CIPROFLOXACIN 200 MG PREMIX 100 ML IV SCH ×2 (06:23→18:00)
[2016-04-18] MEDS: INSULIN ASPART SUPPLEMENTAL SCALE SQ SCH ×4 (06:24→23:33)
[2016-04-18] MEDS: methylPREDNISolone SOD SUCC 40 MG/1 ML VIAL IV PUSH SCH ×2 (06:24→12:53)
[2016-04-18 07:58] LABS: POTASSIUM 3.5 MEQ/L (3.5-5.1)
[2016-04-18 08:00] VITALS: BP 155/88; PULSE 88; RESP 18; TEMP 97.8; O2SAT 97
[2016-04-18 08:01] LABS: BICARBONATE 27.7 MEQ/L (21.0-32.0)
[2016-04-18] MEDS: metroNIDAZOLE 500 MG INJ 100 ML IV SCH ×3 (08:25→23:33)
[2016-04-18] MEDS: SODIUM CHLORIDE 0.9% FLUSH 5 ML FLUSH FLUSH SCH ×2 (08:25→23:32)
--- NOTE | 2016-04-18 10:44 | MB ---
cc: KIRILL BROOKS MD, BEATRICE S. M.D. DATE OF CONSULTATION: 04/18/[address] Brooks REASON FOR CONSULTATION Small bowel obstruction, abnormal terminal ileum, concern for inflammatory bowel disease. HISTORY OF PRESENT ILLNESS Mr. Gustabo Francois is a 70-year-old gentleman visiting from [place]. He was admitted to the hospital with abdominal pain, nausea and vomiting. Workup indicated high-grade bowel obstruction. CT suggested inflammation of the terminal ileum, concern for possible inflammatory bowel disease. The patient denies any nausea, vomiting, abdominal pain or previous GI issues. He denies any weight loss, melena, hematemesis or hematochezia. The patient has a history of small bowel obstruction many years ago that resolved on its own, after was given Reglan. The patient had a left inguinal hernia repair a year ago which was done robotically and also mesh was placed at that time. There was no history of previous inflammatory bowel disease or other GI issues. Apparently he did have an endoscopy in the past which was suggestive of hiatal hernia and esophagitis. PAST MEDICAL HISTORY 1. Diabetes. 2. Coronary artery disease, status post MN. 3. History of diverticulitis. 4. BPH. 5. Reflux. 6. History of colon polyps. 7. History of small bowel obstruction. 8. Hypertension. 9. Hyperlipidemia. PAST SURGICAL HISTORY 1. Neck melanoma. 2. Carpal tunnel. 3. Left hip replacement. 4. Cataracts. 5. Left inguinal repair. ALLERGIES HMG-COA REDUCTASE INHIBITORS. FAMILY HISTORY Denies any family history of colon cancer or any other GI pathology. SOCIAL HISTORY Denies smoking or drug use. Occasionally drinks alcohol. MEDICATIONS Current medication list: 1. Zofran. 2. Ciprofloxacin. 3. Solu-Medrol. 4. Metronidazole. 5. Protonix. 6. Reglan. 7. Morphine. 8. Apresoline. 9. Narcan p.r.n. 10.IV fluids. REVIEW OF SYSTEMS CONSTITUTIONAL: He denies any fever or chills, weight loss or weight gain. ENT: No alteration in baseline hearing or visual acuity. PULMONARY: Denies any chest pain or shortness breath. GASTROINTESTINAL: As above. GENITOURINARY: Denies dysuria or hematuria. HEMATOLOGIC: No history of anemia or bleeding disorder. SKIN: No alteration in baseline skin lesions. NEUROLOGIC: No history of TIA or CVA kind of symptoms. PHYSICAL EXAMINATION GENERAL: On clinical exam he is sitting comfortably in bed in no acute distress. He has an NG tube to suction draining bilious material. VITAL SIGNS: Temperature 98.7, pulse 99, respirations 18, blood pressure 155/98. Saturation 95. HEENT: PERRLA. NECK: No JVD. No lymphadenopathy. CHEST: Clear to auscultation and percussion. CARDIOVASCULAR: S1, S2. No murmur. ABDOMEN: Soft, mildly distended. Tender in the right lower quadrant. RELAY ADJUSTER: Awake, alert, oriented x3. No focal signs identified. LABORATORY DATA Hemoglobin 15.6, white count 12.5, platelets 299. PT and INR are normal. BUN 20, creatinine 1.2, glucose 202. Liver enzymes normal. IMAGING DATA CT abdomen and pelvis done upon admission showed long segment of high-grade inflammatory changes with wall-thickening, luminal narrowing of small bowel in the right lower quadrant which involves the mid and distal ileum but spares the terminal ileum. There is associated small bowel obstruction. Inflammatory changes are nonspecific. Rule out Crohn's disease. Trace ascites. No free air. Mild fatty infiltration. IMPRESSION Mr. Gustabo Francois is a very pleasant gentleman admitted with nausea and vomiting, abdominal pain, diagnosed with small bowel obstruction secondary to inflammatory changes in the ileum and concern for possible Crohn's disease. Due to acute events I doubt this is the case. Other causes like adhesions and ileitis will be in the differential. RECOMMENDATIONS 1. Continue NG tube, n.p.o., abdominal x-ray monitoring. 2. Obtain records from [place]. 3. and C-reactive protein. 4. If the patient clinically improves, consider a small bowel follow-through. If not, laparoscopic evaluation is planned by surgery. 5. If the patient's clinical status improves consider upper endoscopy and colonoscopy. For now continue current management. I would like to thank Dr. Brooks for referring him to our office for consultation. Discussed with . Carmen Powell MD BSB/BT /7:31 AM /10:22 AM
[2016-04-18 12:00] VITALS: BP 138/77; PULSE 86; RESP 16; TEMP 98.5; O2SAT 96
--- NOTE | 2016-04-18 13:50 | HHI.PR ---
Subjective Remarks Follow up patient with small bowel obstruction. Patient denies any complaints of abdominal pain at this time. States he's passed a small amount of gas. He continues to ambulate frequently in the hallway and was seen earlier today walking with his . He denies any other acute complaints at this time. Objective Vitals Vital Signs Date Time Temp Pulse Resp B/P Pulse Ox O2 Delivery O2 Flow Rate FiO2 04/18/16 08:00 97.8 88 18 155/88 97 04/18/16 00:00 98.7 99 18 155/98 95 04/17/16 20:00 98.5 96 18 162/104 94 04/17/16 16:00 98.9 96 18 161/88 94 I/O 04/17/16 04/17/16 04/17/16 04/18/16 04/18/16 04/18/16 07:00 15:00 23:00 07:00 15:00 23:00 Intake Total 60 ml 0 ml 3862 ml Output Total 200 ml 650 ml 200 ml Balance -140 ml 0 ml 3212 ml -200 ml Intake Oral 60 ml 0 ml 220 ml IV Total 3642 ml Output Urine Total 450 ml 200 ml Gastric Drainage Total 200 ml 200 ml # Voids 3 4 1 # Bowel Movements 0 0 Result Diagram: 04/16/16 1050 04/18/16 0730 Imaging Last 48 hours Impressions Abdomen X-Ray 04/17/16 0000 Signed Impressions: Service Date/Time: April 08:23 - CONCLUSION: 1. Abnormal small bowel dilatation characteristic of at least a partial small bowel obstruction. No free air. Jaciel Burnett MD Objective Remarks GENERAL: Well-nourished, well-developed very pleasant male patient. Lying in his hospital bed, appears very comfortable. SKIN: Warm and dry. HEAD: Normocephalic. EYES: No scleral icterus. No injection or drainage. NECK: Supple, trachea midline. No JVD or lymphadenopathy. CARDIOVASCULAR: Regular rate and rhythm without murmurs, gallops, or rubs. RESPIRATORY: Breath sounds equal bilaterally. No accessory muscle use. GASTROINTESTINAL: Bowel sounds are nearly absent. Abdomen distended but soft. Nontender throughout. EXTREMITIES: No cyanosis, or edema. NEUROLOGICAL: Awake, alert, and oriented x 3. Non-focal. Medications and IVs Current Medications Medications (Trade) Dose Ordered Sig/Lisa Route Start Time Stop Time Status Last Admin (NS Flush) 2 ml UNSCH PRN IVF 04/16/16 10:45 (NS Flush) 2 ml UNSCH PRN FLUSH 04/16/16 14:00 (NS Flush) 2 ml BID FLUSH 04/16/16 21:00 04/17/16 20:18 (Zofran Inj) 4 mg Q6H PRN IVP 04/16/16 20:00 (Reglan Inj) 5 mg Q6H PRN IV PUSH 04/16/16 15:00 04/16/16 17:09 (Morphine Inj) 2 mg Q3H PRN IV 04/16/16 14:15 04/16/16 16:59 (Narcan Inj) 0.4 mg UNSCH PRN IV 04/16/16 14:00 Hydralazine HCl 10 mg 10 mg Q4H PRN IV PUSH 04/16/16 14:15 04/17/16 20:19 (Lr 1000 ml Inj) 1,000 ml @ 125 mls/hr Q8H IV 04/16/16 16:00 04/18/16 12:11 (D50w (Vial) Inj) 25 ml UNSCH PRN IV PUSH 04/16/16 16:00 Glucagon 1 mg 1 mg UNSCH PRN OTHER 04/16/16 16:00 Metronidazole 100 ml @ 100 mls/hr Q8H IV 04/16/16 16:00 04/18/16 08:25 (Cipro 200 Mg Premix) 100 ml @ 100 mls/hr Q12H IV 04/16/16 18:00 04/18/16 06:23 (SoluMEDROL INJ) 40 mg Q6HR IV PUSH 04/16/16 18:00 04/18/16 12:53 (Protonix Inj) 40 mg Q24H IV PUSH 04/16/16 16:00 04/17/16 17:27 A/P Problem List: (1) SBO (small bowel obstruction) ICD Code: K56.69 Status: Acute (2) CAD (coronary artery disease) ICD Code: I25.10 Status: Chronic (3) Ileitis ICD Code: K52.9 Status: Acute (4) HTN (hypertension) ICD Code: I10 Status: Chronic (5) Type 2 diabetes mellitus ICD Code: E11.9 Status: Chronic (6) LYNSEY (acute kidney injury) ICD Code: N17.9 Status: Acute Assessment and Plan 70-year-old male with PMHX of left inguinal hernia repair in November 2015 and previous history of small bowel obstruction approximately 15 years ago who presented to the ER today complaining of severe right sided abdominal pain that began yesterday evening. Small bowel obstruction due to inflammatory changes in the ileum - previous history of small bowel obstruction and intra-abdominal surgery - Continue conservative management with NG tube to suction, draining 200 mL overnight - Continue with IV antibiotics to include Cipro and Flagyl - Continue IV fluids - Continue with IV pain medication and antiemetics when necessary - GI following, very much appreciate their assistance - Dr. John also following, very much appreciate his assistance - he will continue to follow patient through his clinical course and decide if surgical intervention is indicated - Abdominal x-ray monitoring Mild acute kidney injury - Unchanged from yesterday, still 1.40 - Continue IV fluid rate 125 mL per hour. - Avoid nephrotoxic agent - Repeat BMP in the morning. Type 2 diabetes - hold Januvia until taking by mouth. - Continue with Sliding scale insulin with Accu-Cheks. CAD, History of AR - does not have any coronary artery stents - hold aspirin as he is nothing by mouth, will resume once able Hypertension - Fairly well-controlled at present - hydralazine IV when necessary. GERD - Protonix IV. BPH - voiding well. DVT prophylaxis - Continue with SCDs/ANTELMO elder. Written by Arely Quarles, acting as scribe for Dr. Campbell on 04/18/16 at 13:47. Medical Decision Making Impression and Plan The exam, history, and the medical decision-making described in the above note were completed with my assistance as the dictating practitioner. I attest that I had a [id number] encounter with the patient on the same day, and personally performed all of the history, exam, or medical decision making. I reviewed and agree with the plan.. Patient feels he passed some gas. Abdomen still quite distended and patient has increased gas. Pain is improved however he did have some nausea with the morphine which we will change. Arely Quarles Apr 18, 2016 13:50 Melinda Campbell MD Apr 18, 2016 14:27
[2016-04-18] MEDS ORDERED: DIATRIZOATE MEGLUM/DIATRIZOATE SOD 120 ML BTL (for RAD DIAG) NG ONE (14:58)
[2016-04-18] MEDS ORDERED: HYDROmorphone HCL PF 1 MG/ML VIAL IV PUSH PRN (15:00)
[2016-04-18 16:00] VITALS: BP 165/92; PULSE 89; RESP 18; TEMP 99.4; O2SAT 97
--- NOTE | 2016-04-18 16:39 | HHI.PR ---
Subjective Subjective Notes no acute issues, small flatus, no bm Objective Vitals/I&O Vital Signs Date Time Temp Pulse Resp B/P Pulse Ox O2 Delivery O2 Flow Rate FiO2 04/18/16 12:00 98.5 86 16 138/77 96 04/16/16 14:51 Room Air Labs Laboratory Tests Test 04/18/16 04/18/16 07:30 09:20 Sodium Level 139 Potassium Level 3.5 Chloride Level 102 Carbon Dioxide Level 27.7 Anion Gap 9 Blood Urea Nitrogen 25 Creatinine 1.40 Estimat Glomerular Filtration 50 Rate Random Glucose 217 Calcium Level 8.6 C-Reactive Protein 0.67 Erythrocyte Sedimentation Rate 6 Date/Time Procedure Status Source Growth 04/16/16 13:30 Aerobic Blood Culture - Preliminary Resulted Blood Peripheral NO GROWTH IN 2 DAYS 04/16/16 13:30 Anaerobic Blood Culture - Preliminary Resulted Blood Peripheral NO GROWTH IN 2 DAYS Cardiovascular: Regular Lungs: Clear Abdomen: Non-tender (+distension, mild ttp) A/P Assessment and Plan SBO plan ng to sxn currently with abdominal exams will obtain SBFT, if obstruction will need operative intervention will discuss possible transfer to [facility] Carson Moore MD Apr 18, 2016 16:39
[2016-04-18] MEDS: PANTOPRAZOLE SODIUM 40 MG VIAL IV PUSH SCH (17:32)
[2016-04-18 20:00] VITALS: BP 142/93; PULSE 92; RESP 16; TEMP 98.9; O2SAT 94
[2016-04-18 22:41] VITALS: BP 152/95; PULSE 84; RESP 20; TEMP 98.9; O2SAT 95
--- NOTE | 2016-04-19 01:18 | RADRPT ---
EXAM DATE/TIME: 04/18/2016 14:27 [facility] COMPARISON: ABDOMEN KUB ONLY, April 17, 2016, 8:23. INDICATIONS : Abdominal pain. FLUORO TIME: 0 minutes IMAGE COUNT: 18 CONTRAST: [facility] IMAGING TIME(S): 15 min, 30 min, 45 min, 1 hr, 1.5 hrs, 3 hrs7 hrs, 10hrs MEDICAL HISTORY : Hypertension. Inflammatory bowel disease. Diabetes mellitus type II. Reflux SURGICAL HISTORY : CABG. Vasectomy ENCOUNTER: Initial ACUITY: 3 days PAIN SCORE: 02/18 LOCATION: Abdomen FINDINGS: Preliminary film demonstrates numerous dilated loops of small bowel measuring up to 5.3 cm in dimensi on. NG tube coiled in the stomach. Following ingestion of contrast, sequential KUBs were performed out to 10 hours. There is contrast present in dilated loops of small bowel with slow progression ove r time. The water-soluble contrast continues to dilute as it progresses through the small bowel. At 10 hours, the contrast is fairly dilute,, but some contrast is discernible within the right colon an d transverse colon. CONCLUSION: Water-soluble contrast is seen within the colon on the 10 hour film. This pattern is compatible with either partial small bowel obstruction or severe ileus. Gonzalez Kim MD on April 19, 2016 at 1:10 Board Certified Radiologist. This report was verified electronically.
[2016-04-19 02:54] VITALS: BP 161/95; PULSE 85; RESP 18; TEMP 98.6; O2SAT 94
[2016-04-19] MEDS: CIPROFLOXACIN 200 MG PREMIX 100 ML IV SCH ×2 (06:05→18:00)
[2016-04-19] MEDS: INSULIN ASPART SUPPLEMENTAL SCALE SQ SCH ×4 (06:06→22:39)
[2016-04-19] MEDS ORDERED: ceFAZolin 2 GM PREMIX 50 ML IV SCH (06:45)
[2016-04-19 08:00] VITALS: BP 164/96; PULSE 75; RESP 18; TEMP 95.9; O2SAT 95
[2016-04-19] MEDS: SODIUM CHLORIDE 0.9% FLUSH 5 ML FLUSH FLUSH SCH ×2 (09:00→22:40)
[2016-04-19] MEDS: metroNIDAZOLE 500 MG INJ 100 ML IV SCH ×4 (09:22→22:39)
[2016-04-19] MEDS: hydrALAZINE HCL 20 MG/ML VIAL IV PUSH PRN (09:36)
[2016-04-19 12:00] VITALS: BP 161/97; PULSE 84; RESP 18; TEMP 99; O2SAT 96
[2016-04-19] MEDS ORDERED: HEPARIN SODIUM - IV 10,000 UNITS/10 ML VIAL ONE (12:47)
[2016-04-19] MEDS ORDERED: BUPIVACAINE/EPINEPHRINE 0.25% 50 ML VIAL ONE (13:19)
[2016-04-19] MEDS ORDERED: NORMOSOL R INJ 1,000 ML IV ONE (14:23)
[2016-04-19] MEDS ORDERED: PROPOFOL 200 MG/20 ML AMP IV ONE (14:23)
[2016-04-19] MEDS ORDERED: ONDANSETRON HCL 4 MG/2 ML VIAL IV PUSH ONE (14:23)
--- NOTE | 2016-04-19 14:46 | MB ---
cc: VINCE DIOP MD DATE OF CONSULTATION: 04/19/2016 REASON FOR CONSULTATION Preoperative evaluation. HISTORY OF PRESENT ILLNESS The patient is a very pleasant 70-year-old gentleman with a history of CABG approximately 10 years ago but who has been well worked up for his coronary disease as he has had several surgeries including a hernia repair last fall prior to which he had what his family describes as a nonischemic nuclear stress test with a normal ejection fraction. The patient has had absolutely no cardiac symptoms such as chest pain, shortness of breath, lightheadedness, dizziness. PAST MEDICAL HISTORY 1. Coronary artery disease status post CABG. 2. Diabetes mellitus. 3. BPH. 4. Hypertension. 5. Hyperlipidemia. CURRENT MEDICATIONS 1. Cefazolin. 2. Ciprofloxacin. ALLERGIES STATINS. PHYSICAL EXAMINATION VITAL SIGNS: Afebrile, pulse 75, respiratory rate 18, BP 164/96, satting 95 on room air. GENERAL: A pleasant well-appearing gentleman in no distress. NECK: No JVD. LUNGS: Clear to auscultation bilaterally. CARDIOVASCULAR: Regular, rate and rhythm. No murmurs appreciated. EXTREMITIES: No edema. LABORATORY DATA White count 12.5, hematocrit 48.6, platelets 299. Sodium 139, potassium 3.5, chloride 102, bicarb 27.7, BUN 25, creatinine 1.4. Cardiac enzymes are negative x1. EKG showed sinus rhythm with left axis deviation, left anterior fascicular block and right bundle-branch block but no acute ST or T-wave changes. IMPRESSION Preop evaluation. The patient has no cardiac symptoms and his EKG did not show any acute ischemic changes. His family describes with very good specificity a nonischemic nuclear stress test with a normal ejection fraction just several months ago prior to his last surgery. They note that he did quite well during surgery without any complications. Thus, I do not feel it is necessary to repeat any cardiac risk stratification given all of the above and would consider him at most a moderate risk patient and probably low to moderate risk. I did ask him to try to obtain the stress test for chart completeness but given that it is Thursday and this was performed out of state this may not be necessary, and I would not hold up his surgery based on this report given that the family was very clear with its findings. I will be available on an as needed basis. Thank you again for the opportunity to participate in this patient's care. MD AJAY Peck/RADHA /12:09 PM /2:29 PM
--- NOTE | 2016-04-19 15:31 | HHI.PR ---
Subjective Remarks seen with post-op 6 pm no complains of pain, N/V awake and alert Objective Vitals Vital Signs Date Time Temp Pulse Resp B/P Pulse Ox O2 Delivery O2 Flow Rate FiO2 04/19/16 12:00 99.0 84 18 161/97 96 04/19/16 08:00 95.9 75 18 164/96 95 04/19/16 02:54 98.6 85 18 161/95 94 04/18/16 22:41 98.9 84 20 152/95 95 04/18/16 20:00 98.9 92 16 142/93 94 04/18/16 16:00 99.4 89 18 165/92 97 04/18/16 16:00 99.4 89 18 165/92 97 I/O 04/18/16 04/18/16 04/18/16 04/19/16 04/19/16 04/19/16 07:00 15:00 23:00 07:00 15:00 23:00 Intake Total 3862 ml 0 ml 1425 ml Output Total 650 ml 450 ml 750 ml 1475 ml Balance 3212 ml -450 ml -750 ml -50 ml Intake Oral 220 ml 0 ml 1425 ml IV Total 3642 ml Output Urine Total 450 ml 200 ml 0 ml 475 ml Gastric Drainage Total 200 ml 250 ml 750 ml 1000 ml # Voids 1 # Bowel Movements 0 Result Diagram: 04/16/16 1050 04/18/16 0730 Imaging Last Impressions Small Bowel X-Ray 04/18/16 0000 Signed Impressions: Service Date/Time: Monday, April 18, 2016 14:27 - CONCLUSION: Water-soluble contrast is seen within the colon on the 10 hour film. This pattern is compatible with either partial small bowel obstruction or severe ileus. Gonzalze Kim MD Abdomen X-Ray 04/17/16 0000 Signed Impressions: Service Date/Time: April 08:23 - CONCLUSION: 1. Abnormal small bowel dilatation characteristic of at least a partial small bowel obstruction. No free air. Jaciel Burnett MD Abdomen/Pelvis CT 04/16/16 1035 Signed Impressions: Service Date/Time: Saturday, April 16, 2016 11:51 - CONCLUSION: 1. Long segment high-grade inflammatory changes with wall thickening and luminal narrowing of small bowel in the right lower quadrant, involves the mid and distal ileum but spares the terminal ileum. There is associated small bowel obstruction. The inflammatory changes are nonspecific. Second peak Crohn's disease would be in the differential. 2. Trace ascites, presumably related to the small bowel obstruction. I don't see free air. Also no evidence of abscess. 3. Sigmoid colon diverticulosis without diverticulitis. 4. Mild fatty infiltration of the liver. Alber Ballard MD Objective Remarks awake and alert, NAD anicteric lungs clear regular rhythm abdomen- slightly distended but soft, few bowel sounds, postop strips in place no scrotal edema good peripheral pulses, no edema Procedures 04/19- explore- lap with ARISTEO Assessment to: Continue Lopez insert reason: Surgical/Invasive Proced A/P Problem List: (1) SBO (small bowel obstruction) ICD Code: K56.69 Status: Acute (2) CAD (coronary artery disease) ICD Code: I25.10 Status: Chronic (3) Ileitis ICD Code: K52.9 Status: Acute (4) HTN (hypertension) ICD Code: I10 Status: Chronic (5) Type 2 diabetes mellitus ICD Code: E11.9 Status: Chronic (6) LYNSEY (acute kidney injury) ICD Code: N17.9 Status: Acute Assessment and Plan 70-year-old male with PMHX of left inguinal hernia repair in November 2015 and previous history of small bowel obstruction approximately 15 years ago who presented to the ER today complaining of severe right sided abdominal pain that began yesterday evening. Small bowel obstruction S/P explore lap with ARISTEO- 04/19 - continue NGT - Continue IV fluids - GS ff Mild acute kidney injury - Unchanged from yesterday, still 1.40 - Continue IV fluid rate 125 mL per hour. - Avoid nephrotoxic agent - Repeat BMP in the morning. Type 2 diabetes - hold Januvia until taking by mouth. - Continue with Sliding scale insulin with Accu-Cheks. CAD, History of [place] - does not have any coronary artery stents - hold aspirin as he is nothing by mouth, will resume once able Hypertension - Fairly well-controlled at present - hydralazine IV when necessary. GERD - Protonix IV. BPH - voiding well. DVT prophylaxis - Continue with SCDs/ANTELMO elder. Chandler Goddard MD Apr 19, 2016 15:31
[2016-04-19] MEDS ORDERED: NORC5TAB PO (15:42)
[2016-04-19] MEDS ORDERED: MORPHINE SULFATE 4 MG/ML INJ IV PUSH PRN (15:45)
[2016-04-19] MEDS ORDERED: DO NOT ADM ANY ANTICOAGULANT DRUGS XX PRN (15:46)
--- NOTE | 2016-04-19 15:49 | HHI.PR ---
cc: Errol Du MD Immediate Post Op Note Procedure Date: Apr 19, 2016 Pre Op Diagnosis: Persistent partial small bowel obstruction Post Op Diagnosis: Same, secondary to adhesions with jejunal diverticulum Surgeon: Errol Du Optician Manager(s): Amberly Maher CFA Procedure: 1. Diagnostic laparoscopy 2. Laparoscopic lysis of adhesions 3. 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
[2016-04-19] MEDS ORDERED: fentaNYL CITRATE 250 MCG/5 ML AMP ONE (15:56)
[2016-04-19] MEDS: PANTOPRAZOLE SODIUM 40 MG VIAL IV PUSH SCH (16:00)
[2016-04-19] MEDS ORDERED: SUGAMMADEX SODIUM 200 MG/2 ML VIAL IV PUSH ONE ×2 (19:11)
[2016-04-19] MEDS: LACTATED RINGER'S 1000 ML INJ 1,000 ML IV SCH ×2 (19:14→22:39)
[2016-04-19 20:21] VITALS: BP 159/86; PULSE 74; RESP 21; TEMP 99.3; O2SAT 95
[2016-04-20] VITALS (8 sets, daily range): BP systolic 148–164; BP diastolic 74–84; PULSE 56–78; RESP 17–20; TEMP 96.2–99.3; O2SAT 94–97
[2016-04-20] MEDS: CIPROFLOXACIN 200 MG PREMIX 100 ML IV SCH ×2 (05:50→19:28)
[2016-04-20 08:41] LABS: BICARBONATE 30.6 MEQ/L (21.0-32.0); POTASSIUM 3.1 MEQ/L (3.5-5.1)
[2016-04-20] MEDS: metroNIDAZOLE 500 MG INJ 100 ML IV SCH ×2 (09:25→16:06)
[2016-04-20] MEDS: SODIUM CHLORIDE 0.9% FLUSH 5 ML FLUSH FLUSH SCH (09:44)
[2016-04-20] MEDS: INSULIN ASPART SUPPLEMENTAL SCALE SQ SCH ×2 (16:00→21:00)
[2016-04-20] MEDS: NS + KCL 20 MEQ INJ 1,000 ML IV SCH (16:06)
[2016-04-20] MEDS: POTASSIUM CHLOR 10 MEQ PREMIX 100 ML IV SCH ×2 (16:07→19:28)
[2016-04-20] MEDS: PANTOPRAZOLE SODIUM 40 MG VIAL IV PUSH SCH (16:07)
--- NOTE | 2016-04-20 16:20 | HHI.PR ---
Subjective Subjective Notes No complaints overnight. Minimal pain. Rash on abdomen improved. Objective Vitals/I&O Vital Signs Date Time Temp Pulse Resp B/P Pulse Ox O2 Delivery O2 Flow Rate FiO2 04/20/16 11:54 97.8 78 17 152/75 94 04/20/16 08:26 21 04/20/16 08:00 Room Air 04/19/16 16:30 2 Labs Laboratory Tests Test 04/20/16 08:00 Sodium Level 145 Potassium Level 3.1 Chloride Level 106 Carbon Dioxide Level 30.6 Anion Gap 8 Blood Urea Nitrogen 26 Creatinine 1.25 Estimat Glomerular Filtration 57 Rate Random Glucose 145 Calcium Level 8.0 Date/Time Procedure Status Source Growth 04/16/16 13:30 Aerobic Blood Culture - Preliminary Resulted Blood Peripheral NO GROWTH IN 4 DAYS 04/16/16 13:30 Anaerobic Blood Culture - Preliminary Resulted Blood Peripheral NO GROWTH IN 4 DAYS Lungs: Clear Abdomen: Non-distended, Non-tender Narrative Exam Steristrips clean and dry A/P Assessment and Plan Assessment: POD #1 lap lysis adhesions with excision jejunal diverticulum Plan: Clamp NG and check residuals D/C lozano - done Start diet when bowel function returns Errol Du MD Apr 20, 2016 16:20
--- NOTE | 2016-04-20 17:51 | HHI.PR ---
Subjective Remarks did passed "little" gas NGT in place up and ambulating no abdominal pain Objective Vitals Vital Signs Date Time Temp Pulse Resp B/P Pulse Ox O2 Delivery O2 Flow Rate FiO2 04/20/16 11:54 97.8 78 17 152/75 94 04/20/16 08:26 94 21 04/20/16 08:00 96 Room Air 04/20/16 07:41 98.0 59 17 154/74 96 04/20/16 04:05 98.6 66 19 148/84 95 04/20/16 00:25 96.2 78 20 151/81 96 04/19/16 20:21 99.3 74 21 159/86 95 04/19/16 19:12 Room Air I/O 04/19/16 04/19/16 04/19/16 04/20/16 04/20/16 04/20/16 07:00 15:00 23:00 07:00 15:00 23:00 Intake Total 1425 ml 2136 ml 620 ml Output Total 1475 ml 300 ml 695 ml 675 ml Balance -50 ml -300 ml 1441 ml -55 ml Intake Oral 1425 ml 0 ml 0 ml IV Total 636 ml 620 ml Other 1500 ml Output Urine Total 475 ml 500 ml 225 ml Gastric Drainage Total 1000 ml 300 ml 175 ml 450 ml Estimated Blood Loss 20 ml # Bowel Movements 0 0 Result Diagram: 04/16/16 1050 04/20/16 0800 Imaging Last Impressions Small Bowel X-Ray 04/18/16 0000 Signed Impressions: Service Date/Time: Monday, April 18, 2016 14:27 - CONCLUSION: Water-soluble contrast is seen within the colon on the 10 hour film. This pattern is compatible with either partial small bowel obstruction or severe ileus. Gonzalez Kim MD Abdomen X-Ray 04/17/16 0000 Signed Impressions: Service Date/Time: April 08:23 - CONCLUSION: 1. Abnormal small bowel dilatation characteristic of at least a partial small bowel obstruction. No free air. Jaciel Burnett MD Abdomen/Pelvis CT 04/16/16 1035 Signed Impressions: Service Date/Time: Saturday, April 16, 2016 11:51 - CONCLUSION: 1. Long segment high-grade inflammatory changes with wall thickening and luminal narrowing of small bowel in the right lower quadrant, involves the mid and distal ileum but spares the terminal ileum. There is associated small bowel obstruction. The inflammatory changes are nonspecific. Second peak Crohn's disease would be in the differential. 2. Trace ascites, presumably related to the small bowel obstruction. I don't see free air. Also no evidence of abscess. 3. Sigmoid colon diverticulosis without diverticulitis. 4. Mild fatty infiltration of the liver. Alber Ballard MD Objective Remarks awake and alert, NAD anicteric lungs clear regular rhythm abdomen- slightly distended but soft, few bowel sounds, postop strips in place no scrotal edema good peripheral pulses, no edema Procedures 04/19- explore- lap with ARISTEO Assessment to: Remove Date of Removal: Apr 20, 2016 A/P Problem List: (1) SBO (small bowel obstruction) ICD Code: K56.69 Status: Acute (2) CAD (coronary artery disease) ICD Code: I25.10 Status: Chronic (3) Ileitis ICD Code: K52.9 Status: Acute (4) HTN (hypertension) ICD Code: I10 Status: Chronic (5) Type 2 diabetes mellitus ICD Code: E11.9 Status: Chronic (6) LYNSEY (acute kidney injury) ICD Code: N17.9 Status: Acute Assessment and Plan 70-year-old male with PMHX of left inguinal hernia repair in November 2015 and previous history of small bowel obstruction approximately 15 years ago who presented to the ER today complaining of severe right sided abdominal pain that began yesterday evening. Small bowel obstruction S/P explore lap with ARISTEO- 04/19 - continue NGT - Continue IV fluids - GS ff Acute kidney injury- improved - continue IVF - Repeat BMP in the morning. Type 2 diabetes - hold Januvia until taking by mouth. - Continue with Sliding scale insulin with Accu-Cheks. CAD, History of [place] - does not have any coronary artery stents - hold aspirin as he is nothing by mouth, will resume once able Hypertension - Fairly well-controlled at present - hydralazine IV when necessary. Hypokalemia- replace IV - K in maintenance IVF -recheck in am GERD - Protonix IV. BPH- lozano removed today DVT prophylaxis - Continue with SCDs/ANTELMO geetae. Chandler Goddard MD Apr 20, 2016 17:51
[2016-04-21] VITALS (10 sets, daily range): BP systolic 110–183; BP diastolic 68–93; PULSE 56–70; RESP 16–23; TEMP 96.7–99; O2SAT 93–99
[2016-04-21] MEDS: POTASSIUM CHLOR 10 MEQ PREMIX 100 ML IV SCH (00:51)
[2016-04-21] MEDS: metroNIDAZOLE 500 MG INJ 100 ML IV SCH ×2 (00:51→08:16)
[2016-04-21] MEDS: SODIUM CHLORIDE 0.9% FLUSH 5 ML FLUSH FLUSH SCH ×3 (00:51→21:57)
[2016-04-21] MEDS: NS + KCL 20 MEQ INJ 1,000 ML IV SCH ×3 (00:52→23:44)
[2016-04-21] MEDS: INSULIN ASPART SUPPLEMENTAL SCALE SQ SCH ×4 (06:07→21:00)
[2016-04-21] MEDS: CIPROFLOXACIN 200 MG PREMIX 100 ML IV SCH (06:07)
[2016-04-21 07:00] LABS: BICARBONATE 30.5 MEQ/L (21.0-32.0); POTASSIUM 3.4 MEQ/L (3.5-5.1)
[2016-04-21] MEDS: POTASSIUM CHLOR 20 MEQ PREMIX 100 ML IV SCH ×2 (09:59→12:44)
--- NOTE | 2016-04-21 13:43 | HHI.PR ---
Subjective Subjective Notes Up to chair Happy to have NGT out Objective Vitals/I&O Vital Signs Date Time Temp Pulse Resp B/P Pulse Ox O2 Delivery O2 Flow Rate FiO2 04/21/16 11:39 96.7 68 23 172/90 98 04/21/16 11:15 Room Air 04/21/16 10:17 21 04/19/16 16:30 2 Labs Laboratory Tests Test 04/21/16 05:07 Sodium Level 146 Potassium Level 3.4 Chloride Level 108 Carbon Dioxide Level 30.5 Anion Gap 8 Blood Urea Nitrogen 25 Creatinine 1.18 Estimat Glomerular Filtration 61 Rate Random Glucose 127 Calcium Level 7.6 Cardiovascular: Regular Lungs: Clear Abdomen: Non-distended, Non-tender, Other (lap sites c/d/i), Post-op tenderness Extremities: No edema Narrative Exam NGT removed A/P Assessment and Plan 70 year old male with SBO; POD2 lap ARISTEO with excision jejunal diverticulum -Remove NGT -Start sips of clears -DC antibiotics -Replace K -Continue IVF Attending Note - Dr. Du Abdomen still somewhat distended Passing flatus and having watery stools The exam, history, and the medical decision-making described in the above note were completed with the assistance of the mid-level provider. I reviewed and agree with the findings presented. I attest that I had a [id number] encounter with the patient on the same day, and personally performed and documented my assessment and findings in the medical record. Maribell Heaton Apr 21, 2016 13:43 Errol Du MD Apr 28, 2016 21:26
--- NOTE | 2016-04-21 16:19 | HHI.PR ---
Subjective Remarks had a BM this am NGT out, po 100%, lots of flatus up and and ambulating Objective Vitals Vital Signs Date Time Temp Pulse Resp B/P Pulse Ox O2 Delivery O2 Flow Rate FiO2 04/21/16 11:39 96.7 68 23 172/90 98 04/21/16 11:15 Room Air 04/21/16 10:42 98.6 59 16 183/89 98 04/21/16 10:42 Room Air 04/21/16 10:17 99 21 04/21/16 08:28 Room Air 04/21/16 08:06 98.6 56 16 168/78 97 04/21/16 04:00 98.8 63 20 110/68 97 04/21/16 04:00 98.8 63 20 180/88 97 04/21/16 00:00 98.7 60 20 163/87 96 04/20/16 20:00 99.3 62 20 164/77 95 04/20/16 19:44 97 21 04/20/16 18:44 Room Air I/O 04/20/16 04/20/16 04/20/16 04/21/16 04/21/16 04/21/16 07:00 15:00 23:00 07:00 15:00 23:00 Intake Total 620 ml 1001 ml 645 ml 1018 ml 702 ml Output Total 675 ml 900 ml 30 ml Balance -55 ml 101 ml 645 ml 1018 ml 672 ml Intake Oral 0 ml 0 ml IV Total 620 ml 1001 ml 645 ml 1018 ml 702 ml Output Urine Total 225 ml 600 ml Gastric Drainage Total 450 ml 300 ml 30 ml # Voids 3 2 # Bowel Movements 0 4 0 Result Diagram: 04/21/16 0507 Imaging Last Impressions Small Bowel X-Ray 04/18/16 0000 Signed Impressions: Service Date/Time: Monday, April 18, 2016 14:27 - CONCLUSION: Water-soluble contrast is seen within the colon on the 10 hour film. This pattern is compatible with either partial small bowel obstruction or severe ileus. Gonzalez Kim MD Abdomen X-Ray 04/17/16 0000 Signed Impressions: Service Date/Time: April 08:23 - CONCLUSION: 1. Abnormal small bowel dilatation characteristic of at least a partial small bowel obstruction. No free air. Jaciel Burnett MD Abdomen/Pelvis CT 04/16/16 1035 Signed Impressions: Service Date/Time: Saturday, April 16, 2016 11:51 - CONCLUSION: 1. Long segment high-grade inflammatory changes with wall thickening and luminal narrowing of small bowel in the right lower quadrant, involves the mid and distal ileum but spares the terminal ileum. There is associated small bowel obstruction. The inflammatory changes are nonspecific. Second peak Crohn's disease would be in the differential. 2. Trace ascites, presumably related to the small bowel obstruction. I don't see free air. Also no evidence of abscess. 3. Sigmoid colon diverticulosis without diverticulitis. 4. Mild fatty infiltration of the liver. Alber Ballard MD Objective Remarks awake and alert, NAD anicteric lungs clear regular rhythm abdomen soft, few bowel sounds, postop strips in place no scrotal edema good peripheral pulses, no edema Procedures 04/19- explore- lap with ARISTEO Date of Removal: Apr 20, 2016 A/P Problem List: (1) SBO (small bowel obstruction) ICD Code: K56.69 Status: Acute (2) CAD (coronary artery disease) ICD Code: I25.10 Status: Chronic (3) Ileitis ICD Code: K52.9 Status: Acute (4) HTN (hypertension) ICD Code: I10 Status: Chronic (5) Type 2 diabetes mellitus ICD Code: E11.9 Status: Chronic (6) LYNSEY (acute kidney injury) ICD Code: N17.9 Status: Acute Assessment and Plan 70-year-old male with PMHX of left inguinal hernia repair in November 2015 and previous history of small bowel obstruction approximately 15 years ago who presented to the ER today complaining of severe right sided abdominal pain that began yesterday evening. Small bowel obstruction S/P explore lap with ARISTEO- 04/19 - tolerating diet - GS ff Acute kidney injury- improved - continue IVF - Repeat BMP in the morning. Type 2 diabetes - hold Januvia until taking by mouth. - Continue with Sliding scale insulin with Accu-Cheks. CAD, History of [place] Hypertension- elevated readings -restart cardiac meds- BB once daily - hydralazine IV when necessary. Hypokalemia- being replaced - K in maintenance IVF -recheck in am DM- good readings -diet advance- tolerating GERD - Protonix BPH- lozano removed today- voiding spontaenously DVT prophylaxis -patient up and ambulating around the hallway Chandler Goddard MD Apr 21, 2016 16:19
[2016-04-21] MEDS ORDERED: METOPROLOL SUCCINATE 50 MG EXTENDED RELEASE TAB PO SCH (16:30)
[2016-04-21] MEDS: METOPROLOL SUCCINATE 50 MG EXTENDED RELEASE TAB PO SCH (21:55)
[2016-04-21] MEDS: METOCLOPRAMIDE HCL 10 MG/2 ML VIAL IV PUSH PRN (21:55)
[2016-04-21] MEDS ORDERED: hydrALAZINE HCL 20 MG/ML VIAL IV PUSH ONE (22:45)
[2016-04-22] VITALS (9 sets, daily range): BP systolic 121–173; BP diastolic 65–95; PULSE 60–81; RESP 17–20; TEMP 98.5–99.3; O2SAT 96–98
[2016-04-22 06:34] LABS: BICARBONATE 22.8 MEQ/L (21.0-32.0); POTASSIUM 3.7 MEQ/L (3.5-5.1)
[2016-04-22] MEDS: INSULIN ASPART SUPPLEMENTAL SCALE SQ SCH ×4 (06:37→21:00)
[2016-04-22] MEDS: METOPROLOL SUCCINATE 50 MG EXTENDED RELEASE TAB PO SCH (08:16)
[2016-04-22] MEDS: SODIUM CHLORIDE 0.9% FLUSH 5 ML FLUSH FLUSH SCH ×2 (08:17→21:00)
[2016-04-22] MEDS: NS + KCL 20 MEQ INJ 1,000 ML IV SCH (12:41)
[2016-04-22] MEDS ORDERED: NON-FORMULARY DRUG (Lisinopril-Hctz 1 TAB) PO SCH (13:00)
--- NOTE | 2016-04-22 13:07 | HHI.PR ---
Subjective Subjective Notes Reports multiple (too numerous to count) BMs overnight Feels hungry at bedside Objective Vitals/I&O Vital Signs Date Time Temp Pulse Resp B/P Pulse Ox O2 Delivery O2 Flow Rate FiO2 04/22/16 12:00 98.5 60 19 156/87 96 04/22/16 11:06 21 04/22/16 08:30 Room Air 04/19/16 16:30 2 Labs Laboratory Tests Test 04/22/16 05:12 Sodium Level 144 Potassium Level 3.7 Chloride Level 111 Carbon Dioxide Level 22.8 Anion Gap 10 Blood Urea Nitrogen 17 Creatinine 0.93 Estimat Glomerular Filtration 80 Rate Random Glucose 131 Calcium Level 7.8 Cardiovascular: Regular Lungs: Clear Abdomen: Other (lap sites c/d/i; RIGHT LQ site with mild bruising ) Extremities: No edema A/P Assessment and Plan 70 year old male with SBO; POD3 lap ARISTEO with excision jejunal diverticulum -Advance to regular diet -Check labs in AM -Restart home BP meds -Start PO Protonix -Discussed with at bedside -Discussed with RN Kena Attending Note - Dr. Du Abdomen less distended; steristrips intact The exam, history, and the medical decision-making described in the above note were completed with the assistance of the mid-level provider. I reviewed and agree with the findings presented. I attest that I had a [id number] encounter with the patient on the same day, and personally performed and documented my assessment and findings in the medical record. Maribell Heaton Apr 22, 2016 13:07 Errol Du MD Apr 28, 2016 21:27
[2016-04-22] MEDS: HYDROCHLOROTHIAZIDE 25 MG TAB PO SCH (13:41)
[2016-04-22] MEDS: LISINOPRIL 20 MG TAB PO SCH (13:41)
[2016-04-22] MEDS: PANTOPRAZOLE SOD 40 MG DELAYED RELEASE TAB PO SCH (13:41)
--- NOTE | 2016-04-22 14:50 | HHI.PR ---
Subjective Remarks had loose stools overnight no abdominal apin right now taking po lunch- regular diet- tolerating very well up and ambulating Objective Vitals Vital Signs Date Time Temp Pulse Resp B/P Pulse Ox O2 Delivery O2 Flow Rate FiO2 04/22/16 12:00 98.5 60 19 156/87 96 04/22/16 11:06 97 21 04/22/16 08:30 Room Air 04/22/16 08:00 99.0 62 18 152/82 96 04/22/16 04:00 Room Air 04/22/16 04:00 98.7 70 17 143/80 97 04/22/16 01:47 157/87 04/22/16 00:30 173/81 04/22/16 00:00 99.3 68 18 170/86 96 04/22/16 00:00 Room Air 04/21/16 23:00 170/86 04/21/16 20:00 99.0 65 17 181/92 99 04/21/16 20:00 Room Air 04/21/16 19:49 93 04/21/16 16:00 97.2 70 17 173/93 98 I/O 04/21/16 04/21/16 04/21/16 04/22/16 04/22/16 04/22/16 07:00 15:00 23:00 07:00 15:00 23:00 Intake Total 1018 ml 942 ml 603 ml 555 ml 485 ml Output Total 30 ml 200 ml 200 ml Balance 1018 ml 912 ml 403 ml 355 ml 485 ml Intake Oral 240 ml 50 ml 0 ml IV Total 1018 ml 702 ml 553 ml 555 ml 485 ml Output Urine Total 200 ml 200 ml Gastric Drainage Total 30 ml # Voids 2 2 # Bowel Movements 0 3 1 6 Result Diagram: 04/22/16 0512 Imaging Last Impressions Small Bowel X-Ray 04/18/16 0000 Signed Impressions: Service Date/Time: Monday, April 18, 2016 14:27 - CONCLUSION: Water-soluble contrast is seen within the colon on the 10 hour film. This pattern is compatible with either partial small bowel obstruction or severe ileus. Gonzalez Kim MD Abdomen X-Ray 04/17/16 0000 Signed Impressions: Service Date/Time: April 08:23 - CONCLUSION: 1. Abnormal small bowel dilatation characteristic of at least a partial small bowel obstruction. No free air. Jaciel Burnett MD Abdomen/Pelvis CT 04/16/16 1035 Signed Impressions: Service Date/Time: Saturday, April 16, 2016 11:51 - CONCLUSION: 1. Long segment high-grade inflammatory changes with wall thickening and luminal narrowing of small bowel in the right lower quadrant, involves the mid and distal ileum but spares the terminal ileum. There is associated small bowel obstruction. The inflammatory changes are nonspecific. Second peak Crohn's disease would be in the differential. 2. Trace ascites, presumably related to the small bowel obstruction. I don't see free air. Also no evidence of abscess. 3. Sigmoid colon diverticulosis without diverticulitis. 4. Mild fatty infiltration of the liver. Alber Ballard MD Objective Remarks awake and alert, NAD anicteric lungs clear regular rhythm abdomen soft, few bowel sounds, postop strips in place no scrotal edema good peripheral pulses, no edema Procedures 04/19- explore- lap with ARISTEO Date of Removal: Apr 20, 2016 A/P Problem List: (1) SBO (small bowel obstruction) ICD Code: K56.69 Status: Acute (2) CAD (coronary artery disease) ICD Code: I25.10 Status: Chronic (3) Ileitis ICD Code: K52.9 Status: Acute (4) HTN (hypertension) ICD Code: I10 Status: Chronic (5) Type 2 diabetes mellitus ICD Code: E11.9 Status: Chronic (6) LYNSEY (acute kidney injury) ICD Code: N17.9 Status: Acute Assessment and Plan 70-year-old male with PMHX of left inguinal hernia repair in November 2015 and previous history of small bowel obstruction approximately 15 years ago who presented to the ER today complaining of severe right sided abdominal pain that began yesterday evening. Small bowel obstruction S/P explore lap with ARISTEO- 04/19 - tolerating diet- regular - GS ff Acute kidney injury- improved - continue IVF Type 2 diabetes - hold Januvia until taking by mouth. - Continue with Sliding scale insulin with Accu-Cheks. CAD, History of [place] Hypertension- elevated readings -restart cardiac meds- BB once daily, JEFRY - hydralazine IV when necessary. Hypokalemia- being replaced- improved - K in maintenance IVF -recheck in am DM- good readings -diet advance- tolerating GERD - Protonix BPH- lozano removed today 04/21 - voiding spontaenously DVT prophylaxis -patient up and ambulating around the hallway Chandler Goddard MD Apr 22, 2016 14:50
[2016-04-23] VITALS: BP 131/80; PULSE 75; RESP 20; TEMP 98.7; O2SAT 97
[2016-04-23] MEDS: NS + KCL 20 MEQ INJ 1,000 ML IV SCH (03:04)
[2016-04-23 04:00] VITALS: BP 140/89; PULSE 68; RESP 20; TEMP 97.3; O2SAT 98
[2016-04-23] MEDS: INSULIN ASPART SUPPLEMENTAL SCALE SQ SCH ×2 (06:54→11:34)
[2016-04-23 08:00] VITALS: BP 139/83; PULSE 63; RESP 20; TEMP 98.1; O2SAT 97
[2016-04-23] MEDS: SODIUM CHLORIDE 0.9% FLUSH 5 ML FLUSH FLUSH SCH (08:53)
[2016-04-23] MEDS: LISINOPRIL 20 MG TAB PO SCH (08:56)
[2016-04-23] MEDS: HYDROCHLOROTHIAZIDE 25 MG TAB PO SCH (08:57)
[2016-04-23] MEDS: METOPROLOL SUCCINATE 50 MG EXTENDED RELEASE TAB PO SCH (08:57)
[2016-04-23] MEDS: PANTOPRAZOLE SOD 40 MG DELAYED RELEASE TAB PO SCH (08:57)
--- NOTE | 2016-04-23 09:50 | MP ---
cc: ERROL DU M.D. DATE OF SURGERY 04/19/2016 PROCEDURE 1. Diagnostic laparoscopy 2. Laparoscopic lysis of adhesions. 3. Meckel's diverticulectomy ((distal jejunal diverticulectomy FINDINGS Small bowel obstruction secondary to adhesions with torsion around a distal jejunal diverticulum. PREOPERATIVE DIAGNOSIS Persistent partial small-bowel obstruction. POSTOPERATIVE DIAGNOSIS Persistent partial small-bowel obstruction. ANESTHESIA General endotracheal SURGEON Errol Du MD ESTIMATED BLOOD LOSS Less than 20 mL FLUIDS 1500 mL crystalloid COMPLICATIONS None DRAINS None SPECIMEN Diverticulum to pathology. PROCEDURE IN DETAIL The patient was taken to the operating room and placed on the operating table in the supine position. After an adequate level of general endotracheal anesthesia was achieved, the abdomen was prepped and draped in usual fashion. Time-out was taken confirming the correct patient, site, and procedure to be performed. A small incision was made in the umbilicus and a 5-mm trocar was used with a camera and a 0 degree lens to enter the peritoneal cavity. The abdomen was then insufflated and a 30 degree lens was then utilized. The abdomen was examined and the patient was found to have dilated loops of small bowel. A second and third 5-mm trocar was placed with the first in the right midabdomen and the second just to the right of midline below the umbilicus. These both entered the abdominal cavity under direct vision uneventfully. [place] type bowel graspers were then used to manipulate the intestine; the distal ileum was seen to be decompressed. Careful examination of the bowel revealed an area of adhesions in the right mid to upper abdomen. There appeared to be a fair number of adhesions in this area. These were taken down sharply. A jejunal diverticulum was noted and this appeared to be causing some torsion of the bowel contributing to the partial obstruction. When this had been taken down with sharp dissection, the diverticulum was felt to be at risk for causing torsion once again and thus it was elected to resect it. The small bowel was not resected on the mesenteric border of the bowel as this was not causing any bleeding, pain or perforation. When this had been completed, the bowel was examined and good flow of liquid material was noted going past the staple line with the staple line further reinforced at small bleeding points with 5 mm clips. With absolute hemostasis assured, and with the bowel distal to the previous obstruction now filling with fluid, the bowel was then run from the ligament of Treitz to the obstructed area. No further areas of obstruction were noted. The bowel was then run distal to the ileocecal valve and no adhesions were noted here. No other pathology was noted intra-abdominally. It should be noted that a small adhesion was taken down off of the anterior abdominal wall where the patients previous robotic trocar site was noted. This did not appear to be the primary cause of the obstruction. The patient was then extubated and taken back to the recovery room in stable condition. The nasogastric tube was left in place. Sponge and needle counts were reported be correct. He tolerated the procedure well. MD SYDNEE Mata/GILBERTO /3:53 PM /8:42 AM PETE
[2016-04-23 12:00] VITALS: BP 126/81; PULSE 70; RESP 20; TEMP 98.1; O2SAT 97
[2016-04-23 12:46] LABS: BICARBONATE 29.7 MEQ/L (21.0-32.0); POTASSIUM 3.4 MEQ/L (3.5-5.1)
[2016-04-23 13:12] LABS: CALCIUM-PROTEIN CORRECTED 8.1 MG/DL (8.5-10.1)
[2016-04-23] MEDS ORDERED: POTASSIUM CHLORIDE 10 MEQ CONTROLLED RELEASE TAB PO ONE (14:00)
--- NOTE | 2016-04-23 14:38 | HHI.PR ---
Subjective Subjective Notes Resting in bed at bedside Feels ready to go home Objective Vitals/I&O Vital Signs Date Time Temp Pulse Resp B/P Pulse Ox O2 Delivery O2 Flow Rate FiO2 04/23/16 12:00 98.1 70 20 126/81 97 04/23/16 08:55 Room Air 04/22/16 11:06 21 04/19/16 16:30 2 Labs Laboratory Tests Test 04/23/16 11:54 Sodium Level 142 Potassium Level 3.4 Chloride Level 106 Carbon Dioxide Level 29.7 Anion Gap 6 Blood Urea Nitrogen 15 Creatinine 1.31 Estimat Glomerular Filtration 54 Rate Random Glucose 172 Calcium Level 7.3 Protein Corrected Calcium 8.1 Total Protein 5.6 Cardiovascular: Regular Lungs: Clear Abdomen: Other (lap sites c/d/i; bruisng around lap sites; adb soft ), Post-op tenderness Extremities: No edema A/P Assessment and Plan 70 year old male with SBO; POD4 lap ARISTEO with excision jejunal diverticulum -Tolerating regular diet -K 3.4--- give 30 MEQ K -GS clear for DC -Follow up with Dr. Du in the office next week -Okay to shower -Discussed with at bedside Attending Note - Dr. Du Wounds clean and dry. Abdomen soft and nontender. The exam, history, and the medical decision-making described in the above note were completed with the assistance of the mid-level provider. I reviewed and agree with the findings presented. I attest that I had a [id number] encounter with the patient on the same day, and personally performed and documented my assessment and findings in the medical record. Maribell Heaton Apr 23, 2016 14:38 Errol Du MD Apr 28, 2016 21:37
--- NOTE | 2016-04-23 15:22 | HHI.PR ---
Subjective Remarks tolerating po no nausea or vomiting pain controlled Objective Vitals Vital Signs Date Time Temp Pulse Resp B/P Pulse Ox O2 Delivery O2 Flow Rate FiO2 04/23/16 12:00 98.1 70 20 126/81 97 04/23/16 08:55 Room Air 04/23/16 08:00 98.1 63 20 139/83 97 04/23/16 04:00 97.3 68 20 140/89 98 04/23/16 00:00 98.7 75 20 131/80 97 04/22/16 21:45 Room Air 04/22/16 20:00 99.3 72 20 152/95 98 04/22/16 16:00 98.5 81 18 121/65 96 I/O 04/22/16 04/22/16 04/22/16 04/23/16 04/23/16 04/23/16 07:00 15:00 23:00 07:00 15:00 23:00 Intake Total 555 ml 965 ml 280 ml 1660 ml 388 ml Output Total 200 ml 1000 ml Balance 355 ml 965 ml 280 ml 660 ml 388 ml Intake Oral 0 ml 480 ml 280 ml 590 ml IV Total 555 ml 485 ml 1070 ml 388 ml Output Urine Total 200 ml 1000 ml # Voids 3 2 # Bowel Movements 6 2 0 1 Result Diagram: 04/23/16 1154 Imaging Last Impressions Small Bowel X-Ray 04/18/16 0000 Signed Impressions: Service Date/Time: Monday, April 18, 2016 14:27 - CONCLUSION: Water-soluble contrast is seen within the colon on the 10 hour film. This pattern is compatible with either partial small bowel obstruction or severe ileus. Gonzalez Kim MD Abdomen X-Ray 04/17/16 0000 Signed Impressions: Service Date/Time: April 08:23 - CONCLUSION: 1. Abnormal small bowel dilatation characteristic of at least a partial small bowel obstruction. No free air. Jaciel Burnett MD Abdomen/Pelvis CT 04/16/16 1035 Signed Impressions: Service Date/Time: Saturday, April 16, 2016 11:51 - CONCLUSION: 1. Long segment high-grade inflammatory changes with wall thickening and luminal narrowing of small bowel in the right lower quadrant, involves the mid and distal ileum but spares the terminal ileum. There is associated small bowel obstruction. The inflammatory changes are nonspecific. Second peak Crohn's disease would be in the differential. 2. Trace ascites, presumably related to the small bowel obstruction. I don't see free air. Also no evidence of abscess. 3. Sigmoid colon diverticulosis without diverticulitis. 4. Mild fatty infiltration of the liver. Alber Ballard MD Objective Remarks awake and alert, NAD anicteric lungs clear regular rhythm abdomen soft, few bowel sounds, postop strips in place no scrotal edema good peripheral pulses, no edema Procedures 04/19- explore- lap with ARISTEO Date of Removal: Apr 20, 2016 A/P Problem List: (1) SBO (small bowel obstruction) ICD Code: K56.69 Status: Acute (2) CAD (coronary artery disease) ICD Code: I25.10 Status: Chronic (3) Ileitis ICD Code: K52.9 Status: Acute (4) HTN (hypertension) ICD Code: I10 Status: Chronic (5) Type 2 diabetes mellitus ICD Code: E11.9 Status: Chronic (6) LYNSEY (acute kidney injury) ICD Code: N17.9 Status: Acute Assessment and Plan 70-year-old male with PMHX of left inguinal hernia repair in November 2015 and previous history of small bowel obstruction Small bowel obstruction S/P explore lap with ARISTEO- 04/19 - tolerating diet- regular - GS ff- OP ff up in 1 week Acute kidney injury- improved Type 2 diabetes - hold Januvia until taking by mouth. - Continue with Sliding scale insulin with Accu-Cheks. CAD, History of [place] -restart cardiac meds- BB once daily, JEFRY restart ASA - Thursday FF up in 1 week Hypokalemia- being replaced- improved - K in maintenance IVF - replaced - banana daily DM- good readings -diet advance- tolerating GERD - Protonix BPH- lozano removed today 04/21 - voiding spontaenously DVT prophylaxis -patient up and ambulating around the hallway [place] today FF up with Dr. Almanza in 1 week Chandler Goddard MD Apr 23, 2016 15:22 Chandler Goddard MD Apr 23, 2016 15:22
--- NOTE | 2016-04-23 15:33 | HHI.DS ---
Discharge Summary Admission Date Apr 16, 2016 at 13:29 Discharge Date: Apr 23, 2016 Admitting Diagnosis SBO (1) SBO (small bowel obstruction) ICD Code: K56.69 Diagnosis: Principal (2) CAD (coronary artery disease) ICD Code: I25.10 Diagnosis: Secondary (3) Ileitis ICD Code: K52.9 Diagnosis: Secondary (4) HTN (hypertension) ICD Code: I10 Diagnosis: Secondary (5) Type 2 diabetes mellitus ICD Code: E11.9 Diagnosis: Secondary (6) LYNSEY (acute kidney injury) ICD Code: N17.9 Procedures 04/19- explore- lap with ARISTEO Brief History - From Admission This is a very pleasant 70-year-old male who is from [place] and here vacationing with his and who has a past medical history of left inguinal hernia repair in November 2015 and previous history of small bowel obstruction approximately 15 years ago who presented to the ER today complaining of severe right sided abdominal pain that began yesterday evening. The pain was waxing and waning, no apparent provocative or alleviated factors. He thought he might be constipated and took a stool softener. He did have one soft bowel movement yesterday without any blood in it. He had nausea but no vomiting. This morning he still is having the pain so he was urged to come to the ER by his . While in the shower he felt dizzy and lightheaded and had a near-syncopal event according to his . Jemma CORDERO was called. In the emergency department abdominal CT scan showed a small bowel obstruction with a long segment of high-grade inflammatory changes involving the mid and distal ileum. The patient gets regular colonoscopies every 3 years from history of polyps and has never been told that he has history of Crohn's. He does have a history of diverticulitis and was hospitalized once for this for several days. Patient denies fever or chills. No history of rectal bleeding. CBC/BMP: 04/23/16 1154 Significant Findings Laboratory Tests Test 04/21/16 04/22/16 04/23/16 05:07 05:12 11:54 Sodium Level 146 MEQ/L (136-145) Potassium Level 3.4 MEQ/L 3.4 MEQ/L (3.5-5.1) (3.5-5.1) Chloride Level 108 MEQ/L 111 MEQ/L (98-107) (98-107) Blood Urea Nitrogen 25 MG/DL (7-18) Estimat Glomerular Filtration 61 ML/MIN (>89) 80 ML/MIN (>89) 54 ML/MIN (>89) Rate Random Glucose 127 MG/DL 131 MG/DL 172 MG/DL (74-106) (74-106) (74-106) Calcium Level 7.6 MG/DL 7.8 MG/DL 7.3 MG/DL (8.5-10.1) (8.5-10.1) (8.5-10.1) Creatinine 1.31 MG/DL (0.60-1.30) Protein Corrected Calcium 8.1 MG/DL (8.5-10.1) Total Protein 5.6 GM/DL (6.4-8.2) PE at Discharge awake and alert, NAD anicteric lungs clear regular rhythm abdomen soft, few bowel sounds, postop strips in place no scrotal edema good peripheral pulses, no edema Hospital Course 70-year-old male with PMHX of left inguinal hernia repair in November 2015 and previous history of small bowel obstruction Small bowel obstruction S/P explore lap with ARISTEO- 04/19 - tolerating diet- regular - GS ff- OP ff up in 1 week Acute kidney injury- improved Type 2 diabetes - hold Januvia until taking by mouth. - Continue with Sliding scale insulin with Accu-Cheks. CAD, History of [place] -restart cardiac meds- BB once daily, JEFRY restart ASA - Thursday FF up in 1 week Hypokalemia- being replaced- improved - K in maintenance IVF - replaced - banana daily DM- good readings -diet advance- tolerating GERD - Protonix BPH- lozano removed today 04/21 - voiding spontaenously DVT prophylaxis -patient up and ambulating around the hallway DC today FF up with Dr. Almanza in 1 week Chandler Goddard MD Apr 23, 2016 15:22 Pt Condition on Discharge: Stable Discharge Disposition: Discharge Home Discharge Time: <= 30 minutes Discharge Instructions DIET: Follow Instructions for: Heart Healthy Diet Activities you can perform: Weight Bearing as Mckay Follow up Referrals: Surgical - 1 Week with Errol Almanza MD New Medications: Hydrocodone-Acetaminophen ([place]) 5-325 mg Tab 1-2 TAB PO Q4H PRN PAIN #20 Ref 0 TAB Continued Medications: Colesevelam (Welchol) 625 Mg Tab 1875 MG PO BID Hyperlipidemia,type 2 diabetes #180 Ref 0 TAB Fexofenadine (Fexofenadine) 180 Mg Tab 180 MG PO DAILY Allergy Management #30 Ref 0 TAB Gabapentin (Gabapentin) 300 Mg Cap 300 MG PO DAILY@0600 #60 Ref 0 CAP Gabapentin (Gabapentin) 300 Mg Cap 1200 MG PO HS #60 Ref 0 CAP Lisinopril-Hctz (Lisinopril-Hctz) 20-25 Mg Tab 1 TAB PO DAILY Blood Pressure Management #30 Ref 0 TAB Metoprolol Succinate ER 24 HR (Metoprolol Succinate ER 24 HR) 100 Mg Tab 100 MG PO DAILY #30 Ref 0 TAB Nitroglycerin Ling[place] (Nitroglycerin Lingual [place]) 400 Mcg/Act [place] 1 SPRAY SL DIRECTED ONE SPRAY NEEDED FOR CHEST PAIN, MAY REPEAT EVERY FIVE MINUTES FOR A TOTAL OF 3 DOSES OR CALL 911 IF NO RELIEF PRN CHEST PAIN #1 Ref 0 CONTAINER Pantoprazole (Pantoprazole) 40 Mg Tab 40 MG PO DAILY Reflux #30 Ref 0 TAB Sitagliptin (Januvia) 100 Mg Tab 100 MG PO DAILY Blood Sugar Management #30 Ref 0 TAB Discontinued Medications: Meloxicam (Meloxicam) 7.5 Mg Tab 7.5 MG PO BID Arthritis Pain Ref 0 TAB Chandler Goddard MD Apr 23, 2016 15:33
== END 2016-04-23 16:49 | disposition home or self-care (01) | DRG 336 ==
LOC: PHED 10:30 → PHEDA 13:29 → PH3A 15:12 → N06A 04-18 22:34 → HCPC 04-21 11:11
PROVIDERS: ADMIT Internal Medicine; ATTEND Internal Medicine
PROC: 0DBA4ZZ Excision of Jejunum, Percutaneous Endoscopic Approach (ICD-10-PCS; 2016-04-19)
PROC: 0DN84ZZ Release Small Intestine, Percutaneous Endoscopic Approach (ICD-10-PCS; principal; 2016-04-19 13:37)
DX: K56.5 Intestinal adhesions [bands] with obstruction (postinfection) (principal); N17.9 Acute kidney failure, unspecified; Q43.0 Meckel's diverticulum (displaced) (hypertrophic); I25.10 Atherosclerotic heart disease of native coronary artery without angina pectoris; E11.9 Type 2 diabetes mellitus without complications; I10 Essential (primary) hypertension; K21.9 Gastro-esophageal reflux disease without esophagitis; N40.0 Benign prostatic hyperplasia without lower urinary tract symptoms; E78.5 Hyperlipidemia, unspecified; M19.90 Unspecified osteoarthritis, unspecified site; E87.6 Hypokalemia; R21 Rash and other nonspecific skin eruption; Z96.642 Presence of left artificial hip joint; I25.2 Old myocardial infarction; Z79.84 Long term (current) use of oral hypoglycemic drugs; Z79.82 Long term (current) use of aspirin; Z86.010 Personal history of colon polyps; Z85.820 Personal history of malignant melanoma of skin; Z95.1 Presence of aortocoronary bypass graft
CPT/HCPCS: 74000; 74177; 74250; 80048; 80053; 81001; 82948; 83605; 83690; 84155; 84484; 85025; 85610; 85652; 85730; 86140; 87040; 88304; 88305; 93005; 94150; 96374; 99281; C9113; J0295; J0360; J0690; J0744; J1644; J1815; J2270; J2405; J2765; J2920; J3010; J3480; J7120; Q9963; Q9967